=== PATIENT | male | born 1970 | race African-American/Black ===

== ENCOUNTER 2018-09-07 09:30 | Inpatient (IN) | payer OTHER ==
[2018-09-07 09:33] VITALS: BMI 22.3
--- NOTE | 2018-09-07 09:47 | HP ---
CIWA Score Nausea/Vomitin Muscle Tremors: 2 Anxiety: 2 Agitation: 2 Paroxysmal Sweats: 1-Minimal Palms Moist Orientation: 0-Oriented Tacttile Disturbances: 1-Very Mild Itch/Numbness Auditory Disturbances: 1-Very Mild Visual Disturbances: 1-Very Mild Sensitivity Headache: 2-Mild CIWA-Ar Total Score: 14 - Admission Criteria OASAS Guidelines: Admission for Medically Managed Detox: Requires at least one of the followin. CIWA greater than 12 2. Seizures within the past 24 hours 3. Delirium tremens within the past 24 hours 4. Hallucinations within the past 24 hours 5. Acute intervention needed for co occurring medical disorder 6. Acute intervention needed for co occurring psychiatric disorder 7. Severe withdrawal that cannot be handled at a lower level of care (continued vomiting, continued diarrhea, abnormal vital signs) requiring intravenous medication and/or fluids 8. Patient presents the following: CIWA greater than 12, Acute intervention needed for co-occurring med or psych disorder Admission Criteria Met: Admission criteria met Admission ROS S - HPI Chief Complaint: i need help to stop drinking alcohol,cocaine and marijuana Allergies/Adverse Reactions: Allergies Allergy/AdvReac Type Severity Reaction Status Date / Time shellfish derived Allergy Swelling Verified 09/07/18 09:51 NKDA Allergy Uncoded 09/07/18 09:52 History of Present Illness: this 48 years old male with alcohol,cocaine and marijuana dependence,seeking detox,withdrawal symptom,last detox 2002 history of chf,atrial fibrillation,type 2 dm,weight loss nicotine dependence longest period sobriety 3 years plan fo rrehab Exam Limitations: No Limitations - Ebola screening Have you traveled outside of the country in the last 21 days: No Have you had contact with anyone from an Ebola affected area: No Have you been sick,other than usual withdrawal symptoms: No Do you have a fever: No - Review of Systems Constitutional: Loss of Appetite, Malaise, Night Sweats, Changes in sleep, Weakness, Unintentional Wgt. Loss EENT: reports: Nose Congestion Respiratory: reports: No Symptoms reported Cardiac: reports: Other (chf,atrial fibrillation) GI: reports: Nausea, Poor Appetite, Abdominal cramping : reports: No Symptoms Reported Musculoskeletal: reports: Back Pain, Muscle Pain Integumentary: reports: Dryness Neuro: reports: No Symptoms reported, Tremors Endocrine: reports: No Symptoms Reported Hematology: reports: No Symptoms Reported Psychiatric: reports: No Sypmtoms Reported, Judgement Intact, Mood/Affect Appropiate, Orientated x3 Patient History - Patient Medical History Hx Anemia: No Hx Asthma: No Hx Chronic Obstructive Pulmonary Disease (COPD): No Hx Cancer: No Hx Cardiac Disorders: No (reports 1heart attack 2010, negative findings) Hx Congestive Heart Failure: No Hx Hypertension: No Hx Hypercholesterolemia: No Hx Pacemaker: No HX Cerebrovascular Accident: No Hx Seizures: No Hx Dementia: No Hx Diabetes: Yes (on metformin) Hx Gastrointestinal Disorders: No Hx Liver Disease: No Hx Genitourinary Disorders: No Hx Renal Disease (ESRD): No Hx Thyroid Disease: No Hx Human Immunodeficiency Virus (HIV): Yes (since 2006) Hx Hepatitis C: No Hx Depression: No Hx Suicide Attempt: No Hx Bipolar Disorder: No Hx Schizophrenia: No Other Medical History: no sucidal,no homicidal - Patient Surgical History Past Surgical History: No Hx Neurologic Surgery: No Hx Cataract Extraction: No Hx Cardiac Surgery: No Hx Lung Surgery: No Hx Breast Surgery: No Hx Breast Biopsy: No Hx Abdominal Surgery: No Hx Appendectomy: No Hx Cholecystectomy: No Hx Genitourinary Surgery: No Hx Section: No Hx Orthopedic Surgery: No Anesthesia Reaction: No - PPD History Previous Implant?: Yes Date: 06/23/12 PPD to be Administered?: Yes - Smoking Cessation Smoking history: Current every day smoker Have you smoked in the past 12 months: Yes Aproximately how many cigarettes per day: 5 Cigars Per Day: 0 Hx Chewing Tobacco Use: No Initiated information on smoking cessation: Yes 'Breaking Loose' booklet given: 09/07/18 - Substance & Tx. History Hx Alcohol Use: Yes Hx Substance Use: Yes Substance Use Type: Alcohol, Cocaine, Marijuana Hx Substance Use Treatment: Yes (15 years ago) - Substances Abused Crack Route: Smoking Frequency: Daily Amount used: $50 Age of first use: 16 Date of Last Use: 09/05/18 Alcohol-vodka/beer Route: Oral Frequency: Daily Amount used: 1 pt./4 (16 oz.) Age of first use: 13 Date of Last Use: 09/06/18 Family Disease History - Family Disease History Family History: Denies Admission Physical Exam BHS - Vital Signs Vital Signs: Vital Signs - 24 hr 09/07/18 09:31 Temperature 96.1 F L Pulse Rate 133 H Respiratory 16 Rate Blood Pressure 129/90 - Physical General Appearance: Yes: Moderate Distress, Tremorous, Irritable, Sweating, Anxious HEENTM: Yes: Normal ENT Inspection, ELSY, Pharynx Normal Respiratory: Yes: Lungs Clear, Normal Breath Sounds, No Respiratory Distress Neck: Yes: Within Normal Limits, Supple, Trachea in good position Breast: Yes: Within Normal Limits Cardiology: Yes: Tachycardia Abdominal: Yes: Within Normal Limits, Normal Bowel Sounds, Non Tender, Flat, Soft Genitourinary: Yes: Within Normal Limits Back: Yes: Muscle Spasm Musculoskeletal: Yes: full range of Motion, Back pain, Muscle Pain Extremities: Yes: Within Normal Limits, Normal Range of Motion, Tremors Neurological: Yes: Within Normal Limits, auto bumper straightener II-XII NML intact, Fully Oriented, Alert Integumentary: Yes: Dry Lymphatic: Yes: Within Normal Limits - Diagnostic (1) Alcohol dependence with uncomplicated withdrawal Current Visit: Yes Status: Acute (2) Dependent for continence Current Visit: Yes Status: Acute (3) Cocaine dependence Current Visit: Yes Status: Acute (4) HIV (human immunodeficiency virus infection) Current Visit: No Status: Acute Comment: Continue Complera as prescribed (5) History of CHF (congestive heart failure) Current Visit: Yes Status: Acute (6) History of MO (myocardial infarction) Current Visit: Yes Status: Acute (7) History of atrial fibrillation Current Visit: Yes Status: Acute (8) Nicotine dependence Current Visit: Yes Status: Acute (9) Weight loss Current Visit: Yes Status: Acute Cleared for Admission [facility] - Detox or Rehab [facility] Level of Care: Medically Managed Detox Regimen/Protocol: Librium [facility] Breath Alcohol Content Breath Alcohol Content: 5 Urine Drug Screen - Results Drug Screen Negative: No Urine Drug Screen Results: THC-Marijuana, JHONY-Cocaine
[2018-09-07] MEDS ORDERED: MAGNESIUM HYDROX 2400MG/30ML ORAL SUSPENSION 30 ML CUP PO PRN (10:22)
[2018-09-07] MEDS ORDERED: ACETAMINOPHEN 325 MG TABLET (FP) PO PRN (10:22)
[2018-09-07] MEDS ORDERED: hydrOXYzine PAMOATE 25 MG CAPSULE (FP) PO PRN (10:22)
[2018-09-07] MEDS ORDERED: LOPERAMIDE HCL 2 MG CAPSULE PO PRN (10:22)
[2018-09-07] MEDS ORDERED: guaiFENesin/D-METHORPHAN HB 10 ML UNIT-DOSE CUPS PO PRN (10:22)
[2018-09-07] MEDS ORDERED: IBUPROFEN 400 MG TABLET (FP) PO PRN (10:22)
[2018-09-07] MEDS ORDERED: chlordiazePOXIDE HCL 25 MG CAPSULE PO PRN (10:22)
[2018-09-07] MEDS ORDERED: P-EPHED 60MG/TRIPROLIDI 2.5MG TABLET PO PRN (10:22)
[2018-09-07] MEDS ORDERED: MENTHOL/PHENOL 1 EACH UD MM PRN (10:22)
[2018-09-07] MEDS ORDERED: MAG HYDROX/AL HYDROX/SIMETH 30 ML UNIT-DOSE CUP PO PRN (10:22)
[2018-09-07] MEDS ORDERED: MAGNESIUM CITRATE 300 ML BOTTLE PO PRN (10:22)
--- NOTE | 2018-09-07 13:15 | EKG ---
Test Reason : Blood Pressure : / mmHG Vent. Rate : 065 BPM Atrial Rate : 260 BPM P-R Int : 000 ms QRS Dur : 130 ms QT Int : 378 ms P-R-T Axes : 263 059 -40 degrees QTc Int : 393 ms ATRIAL FLUTTER WITH 4:1 A-V CONDUCTION NON-SPECIFIC INTRA-VENTRICULAR CONDUCTION BLOCK CANNOT RULE OUT ANTEROSEPTAL INFARCT , AGE UNDETERMINED T WAVE ABNORMALITY, CONSIDER INFERIOR ISCHEMIA ABNORMAL ECG NO PREVIOUS ECGS AVAILABLE Confirmed by CLEM ADAN MD ([id number]) on 09/07/2018 1:14:59 PM Referred By: Confirmed By:CLEM ADAN MD
[2018-09-07] MEDS: FUROSEMIDE 40 MG TABLET (FP) PO SCH (17:23)
[2018-09-07] MEDS: chlordiazePOXIDE HCL 25 MG CAPSULE PO SCH ×2 (17:24→22:15)
[2018-09-07 18:30] LABS: URINE APPEARANCE CLEAR; URINE BILIRUBIN NEGATIVE (<2.0 mg/dL); URINE COLOR LTYELLOW; URINE GLUCOSE (UA) 1+ (NEGATIVE); URINE KETONE NEGATIVE (NEGATIVE); URINE LEUK ESTERASE NEGATIVE (NEGATIVE); URINE NITRITE NEGATIVE (NEGATIVE); URINE PROTEIN NEGATIVE (NEGATIVE); URINE UROBILINOGEN NEGATIVE mg/dL (0.2-1.0)
[2018-09-07] MEDS ORDERED: MELATONIN 5 MG TABLETS PO PRN (22:00)
[2018-09-07] MEDS: THIAMINE HCL 100 MG TABLET (FP) PO SCH (22:15)
[2018-09-07] MEDS: CARVEDILOL 6.25 MG TABLET (FP) PO SCH (22:15)
[2018-09-07] MEDS: APIXABAN 5 MG TABLET PO SCH (22:15)
[2018-09-08] MEDS: chlordiazePOXIDE HCL 25 MG CAPSULE PO SCH ×4 (05:56→23:00)
[2018-09-08] MEDS: metFORMIN HCL 500 MG TABLET (FP) PO SCH (06:26)
[2018-09-08] MEDS ORDERED: EMTRICITAB/RILPIVIRINE/TENOFOV 1 EACH TABLET PO SCH ×3 (08:00→10:15)
[2018-09-08] MEDS ORDERED: DILTIAZEM HCL 120 MG PO SCH (10:00)
[2018-09-08] MEDS ORDERED: APIXABAN 5 MG TABLET PO SCH (10:00)
[2018-09-08 10:09] LABS: HEMATOCRIT 43.2 % (35.4-49); HEMOGLOBIN 14.3 GM/dL (11.7-16.9); MCH 31.4 pg (25.7-33.7); MCHC 33.1 g/dl (32.0-35.9); MEAN CELL VOLUME 94.9 fl (80-96); MEAN PLT VOLUME 10.6 fl (7.5-11.1); PLATELET COUNT 137 K/MM3 (134-434); RBC 4.56 M/mm3 (4.00-5.60); RDW 13.1 % (11.9-15.9); WHITE BLOOD COUNT 8.3 K/mm3 (4.0-10.0)
[2018-09-08] MEDS: LOSARTAN POTASSIUM 25 MG TABLET PO SCH (10:18)
[2018-09-08] MEDS: PRENATAL VITAMINS W/ FOLIC ACID TABLET (FP) PO SCH (10:18)
[2018-09-08] MEDS: CARVEDILOL 6.25 MG TABLET (FP) PO SCH ×2 (10:18→23:01)
[2018-09-08] MEDS: APIXABAN 5 MG TABLET PO SCH ×2 (10:18→23:01)
--- NOTE | 2018-09-08 10:39 | PN ---
[facility] Progress Note Note: pt was ordered complera however pt states he will not take his complera since it has been 3 months since he has not been taking his medication. Pt prefer to go back to his doctor before starting complera again. complera d/c.
[2018-09-08 11:01] LABS: ALBUMIN 3.4 g/dl (3.4-5.0); ALK PHOS 90 U/L (45-117); ANION GAP 10 MMOL/L (8-16); BILIRUBIN,TOTAL 0.4 mg/dL (0.2-1); BLOOD UREA NITROGEN 26 mg/dL (7-18); CALCIUM 9.1 mg/dL (8.5-10.1); CHLORIDE 104 mmol/L (98-107); CO2 26 mmol/L (21-32); CREATININE 1.2 mg/dL (0.55-1.3); GLUCOSE,RANDOM 110 mg/dL (74-106); POTASSIUM 4.2 mmol/L (3.5-5.1); SGOT/AST 18 U/L (15-37); SGPT/ALT 20 U/L (13-61); SODIUM 139 mmol/L (136-145); TOT PROT 8.4 g/dl (6.4-8.2)
--- NOTE | 2018-09-08 11:24 | PN ---
[facility] CIWA - CIWA Score Nausea/Vomitin-No Nausea/No Vomiting Muscle Tremors: 3 Anxiety: 3 Agitation: 3 Paroxysmal Sweats: 2 Orientation: 0-Oriented Tacttile Disturbances: 0-None Auditory Disturbances: 0-None Visual Disturbances: 0-None Headache: 0-None Present CIWA-Ar Total Score: 11 [facility] Progress Note (SOAP) Subjective: agitation sweats mild shakes body aches interrupted sleep Objective: 09/08/18 11:23 Vital Signs Temperature 98.6 F 09/08/18 09:30 Pulse Rate 121 H 09/08/18 09:30 Respiratory Rate 18 09/08/18 09:30 Blood Pressure 105/75 09/08/18 09:30 O2 Sat by Pulse Oximetry (%) Laboratory Tests 09/07/18 09/07/18 09/07/18 10:24 15:48 16:39 WBC RBC Hgb Hct MCV MCH MCHC RDW Plt Count MPV Sodium Potassium Chloride Carbon Dioxide Anion Gap BUN Creatinine Creat Clearance w eGFR POC Glucometer 180 137 Random Glucose Calcium Total Bilirubin AST ALT Alkaline Phosphatase Total Protein Albumin Urine Color Ltyellow Urine Appearance Clear Urine pH 5.0 Ur Specific [place] 1.017 Urine Protein Negative Urine Glucose (UA) 1+ H Urine Ketones Negative Urine Blood Negative Urine Nitrite Negative Urine Bilirubin Negative Urine Urobilinogen Negative Ur Leukocyte Esterase Negative RPR Titer 09/08/18 09/08/18 09/08/18 05:55 06:00 06:00 WBC 8.3 RBC 4.56 Hgb 14.3 Hct 43.2 MCV 94.9 MCH 31.4 MCHC 33.1 RDW 13.1 Plt Count 137 D MPV 10.6 Sodium 139 Potassium 4.2 Chloride 104 Carbon Dioxide 26 Anion Gap 10 BUN 26 H Creatinine 1.2 Creat Clearance w eGFR > 60 POC Glucometer 175 Random Glucose 110 H Calcium 9.1 Total Bilirubin 0.4 AST 18 ALT 20 Alkaline Phosphatase 90 Total Protein 8.4 H Albumin 3.4 Urine Color Urine Appearance Urine pH Ur Specific [place] Urine Protein Urine Glucose (UA) Urine Ketones Urine Blood Urine Nitrite Urine Bilirubin Urine Urobilinogen Ur Leukocyte Esterase RPR Titer 09/08/18 06:00 WBC RBC Hgb Hct MCV MCH MCHC RDW Plt Count MPV Sodium Potassium Chloride Carbon Dioxide Anion Gap BUN Creatinine Creat Clearance w eGFR POC Glucometer Random Glucose Calcium Total Bilirubin AST ALT Alkaline Phosphatase Total Protein Albumin Urine Color Urine Appearance Urine pH Ur Specific [place] Urine Protein Urine Glucose (UA) Urine Ketones Urine Blood Urine Nitrite Urine Bilirubin Urine Urobilinogen Ur Leukocyte Esterase RPR Titer Nonreactive aaox3 ambulating no acute distress Assessment: 09/08/18 11:24 withdrawal sx Plan: continue detox increase fluids
[2018-09-08] MEDS ORDERED: FLU VACCINE QUAD 60 MCG/0.5 ML (MDV 18-19) IM ONE (12:00)
[2018-09-08] MEDS: FUROSEMIDE 40 MG TABLET (FP) PO SCH (20:09)
[2018-09-08] MEDS: THIAMINE HCL 100 MG TABLET (FP) PO SCH (23:00)
[2018-09-09] MEDS: chlordiazePOXIDE HCL 25 MG CAPSULE PO SCH ×2 (06:31→10:35)
[2018-09-09] MEDS: metFORMIN HCL 500 MG TABLET (FP) PO SCH (06:31)
[2018-09-09] MEDS ORDERED: ERGOCALCIFEROL (VITAMIN D2) 50,000 UNIT CAPSULE (FP) PO SCH (10:00)
[2018-09-09] MEDS: CARVEDILOL 6.25 MG TABLET (FP) PO SCH ×2 (10:34→22:31)
[2018-09-09] MEDS: PRENATAL VITAMINS W/ FOLIC ACID TABLET (FP) PO SCH (10:35)
[2018-09-09] MEDS: APIXABAN 5 MG TABLET PO SCH ×2 (10:35→22:31)
[2018-09-09] MEDS: LOSARTAN POTASSIUM 25 MG TABLET PO SCH (10:36)
--- NOTE | 2018-09-09 12:23 | PN ---
S CIWA - CIWA Score Nausea/Vomitin-No Nausea/No Vomiting Muscle Tremors: None Anxiety: 2 Agitation: 1-Slight > Activity Paroxysmal Sweats: No Perspiration Orientation: 0-Oriented Tacttile Disturbances: 2-Mild Itch/Numbness/Burn Auditory Disturbances: 0-None Visual Disturbances: 0-None Headache: 0-None Present CIWA-Ar Total Score: 5 [facility] Progress Note (SOAP) Subjective: PATIENT C/O ITCHING, ANXIETY AND INTERRUPTED SLEEP. Objective: 09/09/18 12:22 Vital Signs Temperature 97.2 F L 09/09/18 09:50 Pulse Rate 71 09/09/18 09:50 Respiratory Rate 16 09/09/18 09:50 Blood Pressure 101/68 09/09/18 09:50 O2 Sat by Pulse Oximetry (%) Laboratory Tests 09/07/18 09/07/18 09/07/18 10:24 15:48 16:39 WBC RBC Hgb Hct MCV MCH MCHC RDW Plt Count MPV Sodium Potassium Chloride Carbon Dioxide Anion Gap BUN Creatinine Creat Clearance w eGFR POC Glucometer 180 137 Random Glucose Calcium Total Bilirubin AST ALT Alkaline Phosphatase Total Protein Albumin Urine Color Ltyellow Urine Appearance Clear Urine pH 5.0 Ur Specific [place] 1.017 Urine Protein Negative Urine Glucose (UA) 1+ H Urine Ketones Negative Urine Blood Negative Urine Nitrite Negative Urine Bilirubin Negative Urine Urobilinogen Negative Ur Leukocyte Esterase Negative RPR Titer 09/08/18 09/08/18 09/08/18 05:55 06:00 06:00 WBC 8.3 RBC 4.56 Hgb 14.3 Hct 43.2 MCV 94.9 MCH 31.4 MCHC 33.1 RDW 13.1 Plt Count 137 D MPV 10.6 Sodium 139 Potassium 4.2 Chloride 104 Carbon Dioxide 26 Anion Gap 10 BUN 26 H Creatinine 1.2 Creat Clearance w eGFR > 60 POC Glucometer 175 Random Glucose 110 H Calcium 9.1 Total Bilirubin 0.4 AST 18 ALT 20 Alkaline Phosphatase 90 Total Protein 8.4 H Albumin 3.4 Urine Color Urine Appearance Urine pH Ur Specific [place] Urine Protein Urine Glucose (UA) Urine Ketones Urine Blood Urine Nitrite Urine Bilirubin Urine Urobilinogen Ur Leukocyte Esterase RPR Titer 09/08/18 09/08/18 09/09/18 06:00 16:41 06:29 WBC RBC Hgb Hct MCV MCH MCHC RDW Plt Count MPV Sodium Potassium Chloride Carbon Dioxide Anion Gap BUN Creatinine Creat Clearance w eGFR POC Glucometer 167 148 Random Glucose Calcium Total Bilirubin AST ALT Alkaline Phosphatase Total Protein Albumin Urine Color Urine Appearance Urine pH Ur Specific [place] Urine Protein Urine Glucose (UA) Urine Ketones Urine Blood Urine Nitrite Urine Bilirubin Urine Urobilinogen Ur Leukocyte Esterase RPR Titer Nonreactive PE: ALERT AND ORIENTED X 3 SKIN WARM AND DRY CAR S1S2 RESP CTA BL EXT FULL ROM, NO TREMORS Assessment: 09/09/18 12:23 WITHDRAWAL SX Plan: CONTINUE DETOX ENCOURAGE ORAL FLUIDS CONTINUE TO MONITOR
[2018-09-09] MEDS: chlordiazePOXIDE 5 MG CAPSULE PO SCH ×2 (16:31→22:35)
[2018-09-09] MEDS: FUROSEMIDE 40 MG TABLET (FP) PO SCH (17:46)
[2018-09-09] MEDS: THIAMINE HCL 100 MG TABLET (FP) PO SCH (22:31)
[2018-09-10] MEDS: chlordiazePOXIDE 5 MG CAPSULE PO SCH ×2 (06:09→10:40)
[2018-09-10] MEDS: metFORMIN HCL 500 MG TABLET (FP) PO SCH (10:37)
[2018-09-10] MEDS: APIXABAN 5 MG TABLET PO SCH ×2 (10:38→22:37)
[2018-09-10] MEDS: CARVEDILOL 6.25 MG TABLET (FP) PO SCH ×2 (10:38→22:37)
[2018-09-10] MEDS: LOSARTAN POTASSIUM 25 MG TABLET PO SCH (10:38)
[2018-09-10] MEDS: PRENATAL VITAMINS W/ FOLIC ACID TABLET (FP) PO SCH (10:39)
--- NOTE | 2018-09-10 12:57 | PN ---
S Progress Note (SOAP) Subjective: feeling better no tremor less sweat no gi distress last monthly medication filled 09/01/18 x 30 days medication at home Objective: 09/10/18 12:56 Vital Signs Temperature 97.5 F L 09/10/18 09:37 Pulse Rate 64 09/10/18 09:37 Respiratory Rate 18 09/10/18 09:37 Blood Pressure 109/67 09/10/18 09:37 O2 Sat by Pulse Oximetry (%) Laboratory Last Values WBC 8.3 K/mm3 (4.0-10.0) 09/08/18 06:00 RBC 4.56 M/mm3 (4.00-5.60) 09/08/18 06:00 Hgb 14.3 GM/dL (11.7-16.9) 09/08/18 06:00 Hct 43.2 % (35.4-49) 09/08/18 06:00 MCV 94.9 fl (80-96) 09/08/18 06:00 MCH 31.4 pg (25.7-33.7) 09/08/18 06:00 MCHC 33.1 g/dl (32.0-35.9) 09/08/18 06:00 RDW 13.1 % (11.9-15.9) 09/08/18 06:00 Plt Count 137 K/MM3 (134-434) D 09/08/18 06:00 MPV 10.6 fl (7.5-11.1) 09/08/18 06:00 Sodium 139 mmol/L (136-145) 09/08/18 06:00 Potassium 4.2 mmol/L (3.5-5.1) 09/08/18 06:00 Chloride 104 mmol/L (98-107) 09/08/18 06:00 Carbon Dioxide 26 mmol/L (21-32) 09/08/18 06:00 Anion Gap 10 MMOL/L (8-16) 09/08/18 06:00 BUN 26 mg/dL (7-18) H 09/08/18 06:00 Creatinine 1.2 mg/dL (0.55-1.3) 09/08/18 06:00 Creat Clearance w eGFR > 60 (>60) 09/08/18 06:00 POC Glucometer 148 UNITS (80-120) 09/10/18 06:52 Random Glucose 110 mg/dL (74-106) H 09/08/18 06:00 Calcium 9.1 mg/dL (8.5-10.1) 09/08/18 06:00 Total Bilirubin 0.4 mg/dL (0.2-1) 09/08/18 06:00 AST 18 U/L (15-37) 09/08/18 06:00 ALT 20 U/L (13-61) 09/08/18 06:00 Alkaline Phosphatase 90 U/L (45-117) 09/08/18 06:00 Total Protein 8.4 g/dl (6.4-8.2) H 09/08/18 06:00 Albumin 3.4 g/dl (3.4-5.0) 09/08/18 06:00 Urine Color Ltyellow 09/07/18 15:48 Urine Appearance Clear 09/07/18 15:48 Urine pH 5.0 (5.0-8.0) 09/07/18 15:48 Ur Specific [place] 1.017 (1.010-1.035) 09/07/18 15:48 Urine Protein Negative (NEGATIVE) 09/07/18 15:48 Urine Glucose (UA) 1+ (NEGATIVE) H 09/07/18 15:48 Urine Ketones Negative (NEGATIVE) 09/07/18 15:48 Urine Blood Negative (NEGATIVE) 09/07/18 15:48 Urine Nitrite Negative (NEGATIVE) 09/07/18 15:48 Urine Bilirubin Negative (<2.0 mg/dL) 09/07/18 15:48 Urine Urobilinogen Negative mg/dL (0.2-1.0) 09/07/18 15:48 Ur Leukocyte Esterase Negative (NEGATIVE) 09/07/18 15:48 RPR Titer Nonreactive (NONREACTIVE) 09/08/18 06:00 lab noted Assessment: 09/10/18 12:56 mild withdrawal sx Plan: medically supervised detox
[2018-09-10] MEDS: chlordiazePOXIDE HCL 10 MG CAPSULE PO SCH ×2 (16:41→22:37)
[2018-09-10] MEDS: FUROSEMIDE 40 MG TABLET (FP) PO SCH (17:35)
[2018-09-10] MEDS: THIAMINE HCL 100 MG TABLET (FP) PO SCH (22:37)
--- NOTE | 2018-09-11 08:47 | DS ---
[facility] Detox Discharge Summary Admission Date: 09/07/18 Discharge Date: 09/11/18 - History Present History: Alcohol Dependence Additional Comments: 48 years old male admitted on 09/07/18 for alcohol withdrawal sx completed alcohol detox regimen tolerated well denies alcohol withdrawal sx alert oriented x 3 no acute distress aftercare revelation Pertinent Past History: patient did not take complera x 2-3 weeks patient wants to go to [facility] for new ART medication that complera "hurts my stomach" patient has abscess on right buttock swell erythema warm to touch tenderness + drainage of serosenqueno - Physical Exam Results Vital Signs: Vital Signs Temperature 98 F 09/11/18 07:27 Pulse Rate 122 H 09/11/18 07:27 Respiratory Rate 20 09/11/18 07:27 Blood Pressure 120/70 09/11/18 07:27 O2 Sat by Pulse Oximetry (%) Pertinent Admission Physical Exam Findings: alcohol withdrawal sx Vital Signs Temperature 98.1 F 09/11/18 13:21 Pulse Rate 132 H 09/11/18 13:21 Respiratory Rate 18 09/11/18 13:21 Blood Pressure 110/83 09/11/18 13:21 O2 Sat by Pulse Oximetry (%) Laboratory Last Values WBC 8.3 K/mm3 (4.0-10.0) 09/08/18 06:00 RBC 4.56 M/mm3 (4.00-5.60) 09/08/18 06:00 Hgb 14.3 GM/dL (11.7-16.9) 09/08/18 06:00 Hct 43.2 % (35.4-49) 09/08/18 06:00 MCV 94.9 fl (80-96) 09/08/18 06:00 MCH 31.4 pg (25.7-33.7) 09/08/18 06:00 MCHC 33.1 g/dl (32.0-35.9) 09/08/18 06:00 RDW 13.1 % (11.9-15.9) 09/08/18 06:00 Plt Count 137 K/MM3 (134-434) D 09/08/18 06:00 MPV 10.6 fl (7.5-11.1) 09/08/18 06:00 Sodium 139 mmol/L (136-145) 09/08/18 06:00 Potassium 4.2 mmol/L (3.5-5.1) 09/08/18 06:00 Chloride 104 mmol/L (98-107) 09/08/18 06:00 Carbon Dioxide 26 mmol/L (21-32) 09/08/18 06:00 Anion Gap 10 MMOL/L (8-16) 09/08/18 06:00 BUN 26 mg/dL (7-18) H 09/08/18 06:00 Creatinine 1.2 mg/dL (0.55-1.3) 09/08/18 06:00 Creat Clearance w eGFR > 60 (>60) 09/08/18 06:00 POC Glucometer 142 UNITS (80-120) 09/11/18 06:16 Random Glucose 110 mg/dL (74-106) H 09/08/18 06:00 Calcium 9.1 mg/dL (8.5-10.1) 09/08/18 06:00 Total Bilirubin 0.4 mg/dL (0.2-1) 09/08/18 06:00 AST 18 U/L (15-37) 09/08/18 06:00 ALT 20 U/L (13-61) 09/08/18 06:00 Alkaline Phosphatase 90 U/L (45-117) 09/08/18 06:00 Total Protein 8.4 g/dl (6.4-8.2) H 09/08/18 06:00 Albumin 3.4 g/dl (3.4-5.0) 09/08/18 06:00 Urine Color Ltyellow 09/07/18 15:48 Urine Appearance Clear 09/07/18 15:48 Urine pH 5.0 (5.0-8.0) 09/07/18 15:48 Ur Specific [place] 1.017 (1.010-1.035) 09/07/18 15:48 Urine Protein Negative (NEGATIVE) 09/07/18 15:48 Urine Glucose (UA) 1+ (NEGATIVE) H 09/07/18 15:48 Urine Ketones Negative (NEGATIVE) 09/07/18 15:48 Urine Blood Negative (NEGATIVE) 09/07/18 15:48 Urine Nitrite Negative (NEGATIVE) 09/07/18 15:48 Urine Bilirubin Negative (<2.0 mg/dL) 09/07/18 15:48 Urine Urobilinogen Negative mg/dL (0.2-1.0) 09/07/18 15:48 Ur Leukocyte Esterase Negative (NEGATIVE) 09/07/18 15:48 RPR Titer Nonreactive (NONREACTIVE) 09/08/18 06:00 lab noted - Treatment Hospital Course: Detox Protocol Followed, Detoxed Safely, Responded well, Discharged Condition Good, Rehab Referral Accepted Patient has Accepted a Rehab Referral to: [facility] - Medication Discharge Medications: Ambulatory Orders Emtricitab/Rilpivirine/Tenofov [Complera Tablet -] 1 each PO DAILY #30 tablet Apixaban [Eliquis -] 5 mg PO BID 09/07/18 Carvedilol [Coreg -] 6.25 mg PO BID 09/07/18 Diltiazem Cd [Cardizem Cd -] 120 mg PO DAILY 09/07/18 Ergocalciferol (Vitamin D2) [Vitamin D2] 50,000 unit PO WEEKLY 09/07/18 Furosemide [Lasix -] 40 mg PO DAILY 09/07/18 Losartan Potassium [Cozaar -] 25 mg PO DAILY 09/07/18 Metformin HCl [Glucophage] 500 mg PO DAILY 09/07/18 - Diagnosis (1) Alcohol dependence with uncomplicated withdrawal Current Visit: Yes Status: Acute (2) Nicotine dependence Current Visit: Yes Status: Acute Qualifiers: Nicotine product type: cigarettes Substance use status: in withdrawal Qualified Code(s): F17.213 - Nicotine dependence, cigarettes, with withdrawal (3) Weight loss Current Visit: Yes Status: Acute (4) Diabetes mellitus Current Visit: Yes Status: Chronic Qualifiers: Diabetes mellitus type: other specified (including ADAM) Diabetes mellitus termite control service representative insulin use: without mcfp use Diabetes mellitus complication status: without complication Qualified Code(s): E13.9 - Other specified diabetes mellitus without complications (5) HIV (human immunodeficiency virus infection) Current Visit: Yes Status: Chronic - AMA Did Patient Leave Against Medical Advice: No
[2018-09-11] MEDS: chlordiazePOXIDE HCL 10 MG CAPSULE PO SCH (10:19)
[2018-09-11] MEDS: LOSARTAN POTASSIUM 25 MG TABLET PO SCH (10:22)
[2018-09-11] MEDS: APIXABAN 5 MG TABLET PO SCH (10:22)
[2018-09-11] MEDS: metFORMIN HCL 500 MG TABLET (FP) PO SCH (10:22)
[2018-09-11] MEDS: PRENATAL VITAMINS W/ FOLIC ACID TABLET (FP) PO SCH (10:22)
[2018-09-11] MEDS: CARVEDILOL 6.25 MG TABLET (FP) PO SCH (10:22)
[2018-09-11] MEDS ORDERED: AMOXICILLIN 500 MG CAPSULE (FP) PO SCH (11:00)
[2018-09-11 13:21] VITALS: BP 110/83; PULSE 132; TEMP 98.1
== END 2018-09-11 12:40 | disposition other institution (70) | DRG 774 ==
LOC: YASAS 09:30 → Y6N 11:04
PROC: HZ2ZZZZ Detoxification Services for Substance Abuse Treatment (ICD-10-PCS; principal; 2018-09-07)
DX: F10.230 Alcohol dependence with withdrawal, uncomplicated (principal); F14.20 Cocaine dependence, uncomplicated; F17.213 Nicotine dependence, cigarettes, with withdrawal; Z21 Asymptomatic human immunodeficiency virus [HIV] infection status; E11.9 Type 2 diabetes mellitus without complications; Z79.84 Long term (current) use of oral hypoglycemic drugs; I25.2 Old myocardial infarction; I50.9 Heart failure, unspecified; I48.91 Unspecified atrial fibrillation; Z79.01 Long term (current) use of anticoagulants; R63.4 Abnormal weight loss; Z68.20 Body mass index [BMI] 20.0-20.9, adult; Z74.1 Need for assistance with personal care
CPT/HCPCS: 36415; 80053; 81003; 82962; 85027; 86593; 90688; 93005; 93010; G0008

== ENCOUNTER 2018-09-11 14:48 | Inpatient (IN) | payer OTHER ==
--- NOTE | 2018-09-11 14:31 | HP ---
[facility] Rehab Assess/Revision - Admission History Admitted to Rehab from: [facility] [place] Date of Admission to Rehab: 09/11/18 - Findings Detox History & Physical reviewed: Yes Concur with findings: Yes Comments/Additional Findings: transferred from detox to rehab admission as per protocol Inpatient Rehab Admission - Initial Determination Are CD services needed?: Yes Free of communicable disease: Yes Not in need of hospitalization: Yes - Rehab Admission Criteria Previous failed treatment: Yes Poor recovery environment: Yes Comorbidities: Yes Lacks judgement: No Patient is meeting Inpatient Rehab admission criteria:: Yes
[~2018-09-11 14:48] MED LIST: ACETAMINOPHEN 325 MG TABLET (FP) PO PRN; IBUPROFEN 400 MG TABLET (FP) PO PRN; LOPERAMIDE HCL 2 MG CAPSULE PO PRN; MAG HYDROX/AL HYDROX/SIMETH 30 ML UNIT-DOSE CUP PO PRN; MAGNESIUM CITRATE 300 ML BOTTLE PO PRN; MAGNESIUM HYDROX 2400MG/30ML ORAL SUSPENSION 30 ML CUP PO PRN; MENTHOL/PHENOL 1 EACH UD MM PRN; NICOTINE 14 MG/24 HOURS TOPICAL PATCH TD PRN; NICOTINE POLACRILEX 2 MG GUM BUC PRN; P-EPHED 60MG/TRIPROLIDI 2.5MG TABLET PO PRN; guaiFENesin/D-METHORPHAN HB 10 ML UNIT-DOSE CUPS PO PRN
[2018-09-11 19:52] VITALS: BP 128/83; PULSE 68; TEMP 99
[2018-09-11] MEDS ORDERED: THIAMINE HCL 100 MG TABLET (FP) PO SCH (22:00)
[2018-09-11] MEDS ORDERED: APIXABAN 5 MG TABLET PO SCH (22:00)
[2018-09-11] MEDS ORDERED: MELATONIN 5 MG TABLETS PO PRN (22:00)
[2018-09-11] MEDS ORDERED: CARVEDILOL 6.25 MG TABLET (FP) PO SCH (22:00)
[2018-09-12] MEDS ORDERED: metFORMIN HCL 500 MG TABLET (FP) PO SCH (07:00)
[2018-09-12] MEDS ORDERED: LOSARTAN POTASSIUM 25 MG TABLET PO SCH (10:00)
[2018-09-12] MEDS ORDERED: PRENATAL VITAMINS W/ FOLIC ACID TABLET (FP) PO SCH (10:00)
[2018-09-12] MEDS ORDERED: FUROSEMIDE 40 MG TABLET (FP) PO SCH (10:00)
[2018-09-16] MEDS ORDERED: ERGOCALCIFEROL (VITAMIN D2) 50,000 UNIT CAPSULE (FP) PO SCH (10:00)
== END 2018-09-11 21:50 | disposition left against medical advice (07) | DRG 770 ==
LOC: YASAS 14:48 → Y5N 14:49
PROVIDERS: ADMIT Psychiatry & Neurology Psychiatry; ATTEND Psychiatry & Neurology Psychiatry
PROC: HZ42ZZZ Group Counseling for Substance Abuse Treatment, Cognitive-Behavioral (ICD-10-PCS; principal; 2018-09-11)
DX: F10.230 Alcohol dependence with withdrawal, uncomplicated (principal); F14.20 Cocaine dependence, uncomplicated; F17.210 Nicotine dependence, cigarettes, uncomplicated; Z21 Asymptomatic human immunodeficiency virus [HIV] infection status; E11.9 Type 2 diabetes mellitus without complications; Z79.84 Long term (current) use of oral hypoglycemic drugs; I25.2 Old myocardial infarction; I50.9 Heart failure, unspecified; I48.91 Unspecified atrial fibrillation; Z79.01 Long term (current) use of anticoagulants; R63.4 Abnormal weight loss; Z68.20 Body mass index [BMI] 20.0-20.9, adult; Z74.1 Need for assistance with personal care

== ENCOUNTER → 2019-07-06 | Outpatient (CLI) | payer OTHER | LOC: YHH 11:01 ==

== ENCOUNTER 2020-07-08 12:46 | Inpatient (IN) | payer OTHER ==
--- NOTE | 2020-07-08 13:10 | PDOC ---
History of Present Illness - General Chief Complaint: Blood Sugar Problem Stated Complaint: BLOOD SUGAR PROBLEM Time Seen by Provider: 07/08/20 13:09 History Source: Patient Exam Limitations: No Limitations - History of Present Illness Initial Comments: 07/08/20 13:09 HPI: This is a 50 y/o male with a PMH of well controlled HIV, poorly controlled DM, and CHF presenting to the ED from [facility] due to hypotension/bradycardia, worsening sacral ulcers, and hyperglycemia. He presented to the [facility] today for a regular appointment when they discovered the abnormal vitals, however the patient was conversational and able to ambulate with no problem. He also reports that he had a witnessed syncopal episode last Tuesday. It lasted 2-3 minutes and was preceded by feeling hot, weak, and dizzy. He recovered over the next 10-15 minutes. He has had 5 syncopal episodes over the past 2 years which have always been in conjunction with worsening of his chronic sacral ulcers and an episode of sepsis. His last episode was one year ago and he was admitted to [facility]. He reports that he is chronically hypotensive and bradycardic. His blood pressure normally runs around 110/70's so his currently pressure is low for him. Since Tuesday, he has felt weak, dizzy, and had blurry vision. He denies chest pain, SOB, sore throat, abdominal pain, N/V, or diarrhea. ROS: GENERAL/CONSTITUTIONAL: Yes chills. Yes weakness HEAD, EYES, EARS, NOSE AND THROAT: Yes blurry vision No ear pain or discharge. No sore throat. CARDIOVASCULAR: No chest pain or shortness of breath. RESPIRATORY: Yes chronic cough, No wheezing, or hemoptysis. GASTROINTESTINAL: No nausea, vomiting, diarrhea or constipation. GENITOURINARY: No dysuria, frequency, or change in urination. MUSCULOSKELETAL: No joint or muscle swelling or pain. No neck or back pain. SKIN: Yes chronic back comedomes, worsening chronic sacral ulcers with purulence. NEUROLOGIC: No headache, vertigo, loss of consciousness, or change in strength/sensation. ENDOCRINE: No increased thirst. No abnormal weight change. HEMATOLOGIC/LYMPHATIC: No anemia, easy bleeding, or history of blood clots. PMH: HIV on Biktarvy, DM, CHF Social Hx: Admits to 5-6 cigarettes daily, occasional etoh, marijuana Meds: See nurse note. Allergies: NKDA PE: GENERAL: Awake, alert, and fully oriented, in no acute distress. Patient laying on his side due to pain from ulcers. HEAD: No signs of trauma EYES: PERRLA, EOMI ENT: Oropharynx clear without exudates. Moist mucosa NECK: Normal ROM, supple, no lymphadenopathy, JVD, or masses LUNGS: Breath sounds equal, clear to auscultation bilaterally. No wheezes, and no crackles HEART: irregular rhythm, bradycardic. normal S1 and S2, no murmurs, rubs or gallops ABDOMEN: Soft, nontender, normoactive bowel sounds. No guarding, no rebound. No masses EXTREMITIES: Normal range of motion, no edema. No clubbing or cyanosis. No cords, erythema, or tenderness NEUROLOGICAL: Cranial nerves II through XII grossly intact. Normal speech, normal gait SKIN: Multiple sacral decubitus ulcers. R. sided ulcer with small area of purulent drainage. The rest of the ulcers are crusted. MDM: 07/08/20 14:25 This is a 50 y/o male with a PMH of well controlled HIV, poorly controlled DM, and CHF presenting to the ED from [facility] due to hypotension/bradycardia, wor sening sacral ulcers, and hyperglycemia. - Concern for sepsis as patient is hypotensive, with infected sacral ulcer as source - Feels the same as previous sepsis episode - Well controlled HIV, poorly controlled DM - Afebrile in ED, hypotensive at 80/45 upon arrival. - Pulse fluctuated during exam between 40's-60's. - CBC, CMP, Troponin, Lactic acid, blood cultures - CXR, EKG, CT pelvis with contrast - Will empirically cover with Vancomycin - Spoke with Dr. Fagan who wanted Zosyn on board 07/08/20 14:51 Labs significant for: WBC 12.3k Na 130 Gluc 400's Creatinine 1.8. Up from baseline. PHONG. Not able to get Ct w/ contrast 07/08/20 16:43 - BP improving with fluids 117/82. - Patient admitted to [facility] Past History - Medical History Allergies/Adverse Reactions: Allergies Allergy/AdvReac Type Severity Reaction Status Date / Time No Known Drug Allergies Allergy Verified 07/08/20 13:50 shellfish derived Allergy Swelling Verified 07/08/20 13:50 NKDA Allergy Uncoded 03/14/20 14:34 Home Medications: Ambulatory Orders Carvedilol [Coreg -] 6.25 mg PO BID 09/07/18 Diltiazem Cd [Cardizem Cd -] 120 mg PO DAILY 09/07/18 Ergocalciferol (Vitamin D2) [Vitamin D2] 50,000 unit PO WEEKLY 09/07/18 Furosemide [Lasix -] 40 mg PO DAILY 09/07/18 Losartan Potassium [Cozaar -] 25 mg PO DAILY 09/07/18 Metformin HCl [Glucophage] 500 mg PO ACBK 09/07/18 Apixaban [Eliquis -] 1 tab PO DAILY 03/20/19 Bictegrav/Emtricit/Tenofov Ala [Biktarvy 50-200-25 mg Tablet] 1 each PO DAILY #30 tablet 06/02/20 Anemia: No Asthma: No Cancer: No Cardiac Disorders: Yes (CHF) CVA: No COPD: No CHF: Yes Dementia: No Diabetes: Yes GI Disorders: No Disorders: No HTN: Yes Hypercholesterolemia: No Kidney Stones: No Liver Disease: No Psychiatric Problems: Yes (Once on a 72 hour hold at [facility] at age 23) Seizures: No Thyroid Disease: No - Surgical History Abdominal Surgery: No Appendectomy: No Cardiac Surgery: No Cholecystectomy: No Lung Surgery: No Neurologic Surgery: No Orthopedic Surgery: No - Reproductive History Testicular Surgery: No - Psycho-Social/Smoking History Smoking History: Current every day smoker Have you smoked in the past 12 months: Yes Number of Cigarettes Smoked Daily: 5 Cigars Per Day: 0 'Breaking Loose' booklet given: 03/14/20 Heart Score/ECG Review - ECG Intrepretation Comment:: 07/08/20 15:36 EKG with Atrial flutter with variable AV block Septal infarct age undermined Abnormal EKG Vent rate 44bpm QRS 112ms QT/QTc 478/408 ED Treatment Course - LABORATORY CBC & Chemistry Diagram: 07/09/20 08:20 07/09/20 08:20 - ADDITIONAL ORDERS Additional order review: Laboratory Results 07/08/20 13:06 POC Glucometer 393 07/08/20 13:06 POC Glucometer 393 Discharge - Discharge Information Problems reviewed: Yes Clinical Impression/Diagnosis: Atrial flutter by electrocardiogram, Abscess of sacrum Condition: Fair - Follow up/Referral - Patient Discharge Instructions - Post Discharge Activity
[2020-07-08] MEDS ORDERED: SODIUM CHLORIDE 1,000 ML IV SCH ×3 (13:15→22:00)
[2020-07-08] MEDS ORDERED: VANCOMYCIN 1,000 MG in DEXTROSE 5%-WATER - 250 ML IVPB ONE (13:44)
--- NOTE | 2020-07-08 13:59 | PDOC ---
Attending Attestation - Resident Resident Name: Nguyen Daniels - ED Attending Attestation I have performed the following: I have examined & evaluated the patient, The case was reviewed & discussed with the resident, I agree w/resident's findings & plan - HPI HPI: 07/08/20 13:54 50-year-old male with history of well-controlled HIV, recurrence back abscesses requiring drainage and complicated by sepsis, last occurrence late 2018, referred now from [facility] [employer] [facility] for hyperglycemia and hypotension in the setting of syncopal episode 5 days ago and infected back abscess. Concern for sepsis as pt presented similarly late 2018 to [facility]. - Physicial Exam PE: 07/08/20 13:57 afebrile, BP 90 systolic alert, nad, conversant lying in stretcher speaking full sentences s1s2 irregular with normal rate, ctab multiple dermal cysts on back with induration, R sacral abscess with purulent drainage - Medical Decision Making 07/08/20 13:58 50-year-old male with history of HIV and recurrent cyst/abscess presents now with sacral abscess and hypotension, concern for sepsis. Sepsis protocol initiated IV antibiotics, will discuss with Dr. Thompson CT imaging to identify extent and number of abscesses. Has required OR drainage in the past. IV fluid resuscitation Admission 07/08/20 16:08 PHONG, elevated lactate, hyperglycemia without elevated AG. received abx, seen by ID. ? pna on cxr proceed with admission Heart Score/ECG Review #1 ECG reviewed & interpreted by me at: 13:13 General ECG Interpretation: Normal Rate (aflutter with variable conduction at rate 44), Normal Intervals (qtc 408), No acute ischemic changes Discharge - Discharge Information Problems reviewed: Yes Clinical Impression/Diagnosis: Atrial flutter by electrocardiogram, Abscess of sacrum Condition: Fair - Follow up/Referral - Patient Discharge Instructions - Post Discharge Activity
[2020-07-08 14:16] LABS: INR 1.43 (0.83-1.09); PROTHROMBIN TIME (PATIENT) 16.9 SEC (9.7-13.0)
[2020-07-08 14:19] LABS: ACTIVATED PTT 31.8 SECONDS (25.2-36.5)
[2020-07-08] MEDS ORDERED: PIPERACILLIN/TAZOB 4.5 GM 4.5 GM in DEXTROSE 5%-WATER 100 ML IVPB ONE (14:24)
[2020-07-08] MEDS ORDERED: PIPERACILLIN/TAZOB 4.5 GM 4.5 GM/100 ML BAG IVPB ONE (14:42)
[2020-07-08] MEDS ORDERED: VANCOMYCIN 1 GRAM (PRE-DOCKED) 1,000 MG/250 ML BAG IVPB ONE (14:43)
[2020-07-08 15:23] LABS: BASO % 0.5 % (0-2.0); EOS % 1.2 % (0-4.5); HEMATOCRIT 37.7 % (35.4-49); HEMOGLOBIN 12.6 GM/dL (11.7-16.9); LYMPH % 13.8 % (8-40); MCHC 33.3 g/dl (32.0-35.9); MEAN PLT VOLUME 9.5 fl (7.5-11.1); MONO % 7.1 % (3.8-10.2); NEUT % 77.4 % (42.8-82.8); PLATELET COUNT 240 K/MM3 (134-434); RBC 3.93 M/mm3 (4.00-5.60); RDW 13.6 % (11.9-15.9); WHITE BLOOD COUNT 12.3 K/mm3 (4.0-10.0)
[2020-07-08 15:24] LABS: VENOUS BASE EXCESS -0.8 mmol/L (-2-2); VENOUS O2 SATURATION 58.1 % (70-80); VENOUS PCO2 48.2 mmHg (38-52); VENOUS PH 7.341 (7.310-7.410)
[2020-07-08 15:48] LABS: ALBUMIN 2.8 g/dl (3.4-5.0); BILIRUBIN,TOTAL 0.5 mg/dL (0.2-1); BLOOD UREA NITROGEN 16.2 mg/dL (7-18); CALCIUM 8.3 mg/dL (8.5-10.1); CREATININE 1.8 mg/dL (0.55-1.3); POTASSIUM 4.7 mmol/L (3.5-5.1); TOT PROT 7.8 g/dl (6.4-8.2)
[2020-07-08 17:00] LABS: PH,URINE 5.5 (5.0-8.0); URINE APPEARANCE CLEAR; URINE BILIRUBIN NEGATIVE (NEGATIVE); URINE COLOR YELLOW; URINE GLUCOSE (UA) 3+ (NEGATIVE); URINE KETONE NEGATIVE (NEGATIVE); URINE LEUK ESTERASE NEGATIVE (NEGATIVE); URINE NITRITE NEGATIVE (NEGATIVE); URINE PROTEIN NEGATIVE (NEGATIVE)
--- NOTE | 2020-07-08 18:38 | PN ---
Progress Note (short form) - Note Progress Note: asked to evaluate by ER resident sent from the [facility] earlier this am with abscesses on his back/hypotension recent syncope with chills on Tuesday imp/reccd sepsis skin abscesses/sacral abscess doubt pneumonia well controlled HIV- continue biktarvy diabetes f/u labs imaging after labs are back iv hydration vanocmycin and zosyn based on renal function Problem List - Problems (1) Sepsis Code(s): A41.9 - SEPSIS, UNSPECIFIED ORGANISM (2) Skin abscess Code(s): L02.91 - CUTANEOUS ABSCESS, UNSPECIFIED (3) Abscess of sacrum Code(s): M46.28 - OSTEOMYELITIS OF VERTEBRA, SACRAL AND SACROCOCCYGEAL REGION (4) HIV (human immunodeficiency virus infection) Code(s): Z21 - ASYMPTOMATIC HUMAN IMMUNODEFICIENCY VIRUS INFECTION STATUS (5) Diabetes mellitus Code(s): E11.9 - TYPE 2 DIABETES MELLITUS WITHOUT COMPLICATIONS Qualifiers: Diabetes mellitus type: other specified (including ADAM) Diabetes mellitus long winder tender insulin use: without penitentiary use Diabetes mellitus complication status: without complication Qualified Code(s): E13.9 - Other specified diabetes mellitus without complications
--- NOTE | 2020-07-08 19:37 | CONS ---
DATE OF CONSULTATION: DATE OF DICTATION: 07/08/2020 INFECTIOUS DISEASE CONSULTATION HISTORY OF PRESENT ILLNESS: I was asked by the ER staff to see the patient. This is a 50-year-old man with a history of well-controlled HIV. He has had multiple episodes of abscesses of his back requiring drainage, last one year ago at [facility], over the last 20 years. He presented to the [facility] today with complaints of syncope on Tuesday reports he had chills, and he thinks he passed out at home. He was found in the clinic to have a blood pressure of 69/44 with a heart rate of 44, a glucose of 464, and was transported to the ER by EMS. He is awake and alert at present, receiving IV fluids. He notes that he has had problems with abscesses for 20 years. He notes that he never has been told he has MRSA. He has a past history of coronary artery disease, he had an UT in 2010. He has a history of CHF and atrial fibrillation, diabetes for more than 20 years, HIV since 2006, and he has multiple abscesses that he has had for a very long time. He notes that he has had a chronic skin condition as well that has let to multiple scars on his back. FAMILY HISTORY: Notable for diabetes in his mother, who has a history of throat cancer as well. Heart disease in his mother. SOCIAL HISTORY: He smokes several cigarettes a day, occasional social alcohol use. He denies any recent substance use. He has a history of pilonidal cyst in the back. REVIEW OF SYSTEMS: He denies headache. He denies fevers and chills. After he thinks he passed out on Tuesday, [facility] and felt fine. He denies any nausea, vomiting. He denies chest pain or abdominal pain. PHYSICAL EXAMINATION: General: He is a thin man in no acute distress. Vital Signs: His blood pressure on arrival at the clinic was 69/44, it was 81/57 in the ER. He weighs 61 kg, saturating 96% on room air with a heart rate that showing 66 and then 92. HEENT: Normocephalic. Eyes are anicteric. Neck: Supple. He has no thrush. Lungs: Clear to auscultation. Heart: Regular rate and rhythm. Abdomen: Soft, nontender. Extremities: Without edema. Skin: Notable for he has multiple lesions on his back that he reports are scarring from his prior rash. He has several scabbed areas at the top of his back that are draining pus. He has a large area in his sacrum where he has some purulent drainage. He reports cultures were taken, labs are all pending. Would treat him at this time with vancomycin and Zosyn. Would adjust the dosage after his labs and renal function are back. Plans are for pelvic imaging to evaluate the extent of these abscesses after his renal function and labs are back. Regarding his HIV status, his last viral load was undetectable, and his last T cells were 614. Further recommendations to follow. Please check hemoblogin A1c and refer to surgery. CARLOS GERMAN M.D. [id number] [email or web address]
--- NOTE | 2020-07-08 22:13 | HP ---
CHIEF COMPLAINT: back abscess PCP: XOCHITL Booker ([place]) HISTORY OF PRESENT ILLNESS: 50 M h/o HIV on HAART (diagnosed 2006, last viral load 5000), PSA w/ crack/cocaine/Etoh/tobacco/Marijuana, HTN, HLD, Afib on Eliquis, h/o multiple abscesses in the past in groin/axilla/sacrum but more recently sacrum, presents with acute on chronic sacral pain, warmth/erythema/and discharge of pus. Patient endorses fever/chills/weakness, weight loss and near syncopal episode at home. BP in 60s systolic in ED. ER course was notable for: (1) BP 60/40 responded w/ IVF (2) Vanco/Zosyn given for sacral abscess Recent Travel: denies PAST MEDICAL HISTORY: as above PAST SURGICAL HISTORY: multiple I/D's Social History: endorses Smoking: yes Alcohol:yes Drugs: crack/THC/cocaine Allergies No Known Drug Allergies Allergy (Verified 07/08/20 13:50) shellfish derived Allergy (Verified 07/08/20 13:50) Swelling NKDA Allergy (Uncoded 03/14/20 14:34) HOME MEDICATIONS: Home Medications Medication Instructions Recorded Carvedilol [Coreg -] 6.25 mg PO BID 09/07/18 Diltiazem Cd [Cardizem Cd -] 120 mg PO DAILY 09/07/18 Ergocalciferol (Vitamin D2) 50,000 unit PO WEEKLY 09/07/18 [Vitamin D2] Furosemide [Lasix -] 40 mg PO DAILY 09/07/18 Losartan Potassium [Cozaar -] 25 mg PO DAILY 09/07/18 Metformin HCl [Glucophage] 500 mg PO ACBK 09/07/18 Apixaban [Eliquis -] 1 tab PO DAILY 03/20/19 Bictegrav/Emtricit/Tenofov Ala 1 each PO DAILY #30 tablet 06/02/20 [Biktarvy 50-200-25 mg Tablet] PHYSICAL EXAMINATION GA lying on side, AAox3, cachectic HEENT NC/AT, temporal wasting, neck supple, no oral thrush LUNGS: Breath sounds equal, clear to auscultation bilaterally. No wheezes, and no crackles HEART: irregular rhythm, bradycardic. normal S1 and S2, no murmurs, rubs or gallops ABDOMEN: Soft, nontender, normoactive bowel sounds. No guarding, no rebound. No masses EXTREMITIES: Normal range of motion, no edema. No clubbing or cyanosis. No cords, erythema, or tenderness NEUROLOGICAL: Cranial nerves II through XII grossly intact. Normal speech, normal gait SKIN: Multiple dermal cysts spanning back. sacral ulcer with small area of purulent drainage. Vital Signs - 24 hr 07/08/20 07/08/20 07/08/20 12:50 15:00 15:35 Temperature 98.3 F Pulse Rate 56 L Pulse Rate [ 92 H 69 Apical] Respiratory 16 13 18 Rate Blood Pressure 80/45 L Blood Pressure 81/57 L 117/82 [Right Arm] O2 Sat by Pulse 100 96 100 Oximetry (%) 07/08/20 19:29 Temperature Pulse Rate Pulse Rate [ 65 Apical] Respiratory 20 Rate Blood Pressure Blood Pressure 115/86 [Right Arm] O2 Sat by Pulse 100 Oximetry (%) Laboratory Results - last 24 hr 07/08/20 07/08/20 07/08/20 13:06 13:40 13:40 WBC 12.3 H RBC 3.93 L Hgb 12.6 Hct 37.7 MCV 96.0 MCH 32.0 MCHC 33.3 RDW 13.6 Plt Count 240 MPV 9.5 Absolute Neuts (auto) 9.5 H Neutrophils % 77.4 Lymphocytes % 13.8 Monocytes % 7.1 Eosinophils % 1.2 Basophils % 0.5 Nucleated RBC % 0 PT with INR INR PTT (Actin FS) VBG pH POC VBG pCO2 POC VBG pO2 VBG HCO3 VBG O2 Sat (Viviane) VBG Base Excess Sodium 130 L Potassium 4.7 Chloride 97 L Carbon Dioxide 28 Anion Gap 5 L BUN 16.2 Creatinine 1.8 H Est GFR (CKD-EPI)AfAm 49.06 Est GFR (CKD-EPI)NonAf 42.33 POC Glucometer 393 Random Glucose 421 H* Lactic Acid Calcium 8.3 L Total Bilirubin 0.5 AST 30 ALT 18 Alkaline Phosphatase 132 H Troponin I Total Protein 7.8 Albumin 2.8 L TSH 1.62 D Free T4 1.32 H Urine Color Urine Appearance Urine pH Ur Specific [place] Urine Protein Urine Glucose (UA) Urine Ketones Urine Blood Urine Nitrite Urine Bilirubin Urine Urobilinogen Ur Leukocyte Esterase 07/08/20 07/08/20 07/08/20 13:40 13:45 13:45 WBC RBC Hgb Hct MCV MCH MCHC RDW Plt Count MPV Absolute Neuts (auto) Neutrophils % Lymphocytes % Monocytes % Eosinophils % Basophils % Nucleated RBC % PT with INR 16.90 H INR 1.43 H PTT (Actin FS) 31.8 VBG pH POC VBG pCO2 POC VBG pO2 VBG HCO3 VBG O2 Sat (Viviane) VBG Base Excess Sodium Potassium Chloride Carbon Dioxide Anion Gap BUN Creatinine Est GFR (CKD-EPI)AfAm Est GFR (CKD-EPI)NonAf POC Glucometer Random Glucose Lactic Acid 2.8 H* Calcium Total Bilirubin AST ALT Alkaline Phosphatase Troponin I < 0.02 Total Protein Albumin TSH Free T4 Urine Color Urine Appearance Urine pH Ur Specific [place] Urine Protein Urine Glucose (UA) Urine Ketones Urine Blood Urine Nitrite Urine Bilirubin Urine Urobilinogen Ur Leukocyte Esterase 07/08/20 07/08/20 13:45 15:35 WBC RBC Hgb Hct MCV MCH MCHC RDW Plt Count MPV Absolute Neuts (auto) Neutrophils % Lymphocytes % Monocytes % Eosinophils % Basophils % Nucleated RBC % PT with INR INR PTT (Actin FS) VBG pH 7.341 POC VBG pCO2 48.2 POC VBG pO2 32.4 VBG HCO3 25.5 VBG O2 Sat (Viviane) 58.1 L VBG Base Excess -0.8 Sodium Potassium Chloride Carbon Dioxide Anion Gap BUN Creatinine Est GFR (CKD-EPI)AfAm Est GFR (CKD-EPI)NonAf POC Glucometer Random Glucose Lactic Acid Calcium Total Bilirubin AST ALT Alkaline Phosphatase Troponin I Total Protein Albumin TSH Free T4 Urine Color Yellow Urine Appearance Clear Urine pH 5.5 D Ur Specific [place] 1.030 Urine Protein Negative Urine Glucose (UA) 3+ H Urine Ketones Negative Urine Blood Negative Urine Nitrite Negative Urine Bilirubin Negative Urine Urobilinogen 1.0 Ur Leukocyte Esterase Negative ASSESSMENT/PLAN: 50 M Infected sacral abscess Sepsis HIV on HAART Afib on AC HTN PSA Plan: Aggressive IVF, hold BP meds/BB Cont. Zosyn/Vancomycin, will need CT pelvis to assess underlying abscess Repeat lactic acid Restart Biktarvy ID evaluation Surgery consult for sacral debridement Don't advise to restart Coreg in view of patient using crack-cocaine DVT ppx: Eliquis Family Medical History Family History: As Documented Visit type - Emergency Visit Emergency Visit: Yes ED Registration Date: 07/08/20 Care time: The patient presented to the Emergency Department on the above date and was hospitalized for further evaluation of their emergent condition. - New Patient This patient is new to me today: Yes Date on this admission: 07/08/20 - Critical Care Critical Care patient: No
[2020-07-08] MEDS ORDERED: APIXABAN 5 MG TABLET ONE (23:04)
[2020-07-08] MEDS ORDERED: INSULIN (LEVEMIR) 100 UNITS/ML UNITS SQ ONE (23:05)
[2020-07-08] MEDS: INSULIN SLIDING SCALE (NOVOLOG) 1 VIAL SQ SCH (23:17)
[2020-07-08] MEDS: INSULIN (LEVEMIR) 100 UNITS/ML UNITS SQ SCH (23:17)
[2020-07-08] MEDS: APIXABAN 5 MG TABLET PO SCH (23:17)
[2020-07-09 04:09] LABS: CALCIUM 8.4 mg/dL (8.5-10.1); CREATININE 1.4 mg/dL (0.55-1.3); POTASSIUM 4.3 mmol/L (3.5-5.1)
[2020-07-09 08:51] LABS: BASO % 0.4 % (0-2.0); EOS % 0.9 % (0-4.5); HEMATOCRIT 35.7 % (35.4-49); HEMOGLOBIN 11.9 GM/dL (11.7-16.9); LYMPH % 9.6 % (8-40); MCH 31.4 pg (25.7-33.7); MCHC 33.3 g/dl (32.0-35.9); MEAN CELL VOLUME 94.3 fl (80-96); MEAN PLT VOLUME 8.8 fl (7.5-11.1); MONO % 6.2 % (3.8-10.2); NEUT % 82.9 % (42.8-82.8); PLATELET COUNT 219 K/MM3 (134-434); RBC 3.79 M/mm3 (4.00-5.60); RDW 13.6 % (11.9-15.9); WHITE BLOOD COUNT 11.3 K/mm3 (4.0-10.0)
[2020-07-09 09:21] LABS: ALBUMIN 2.6 g/dl (3.4-5.0); BILIRUBIN,TOTAL 0.3 mg/dL (0.2-1); CALCIUM 8.2 mg/dL (8.5-10.1); CREATININE 1.2 mg/dL (0.55-1.3); POTASSIUM 3.8 mmol/L (3.5-5.1); TOT PROT 7.3 g/dl (6.4-8.2)
[2020-07-09] MEDS: INSULIN (LEVEMIR) 100 UNITS/ML UNITS SQ SCH ×2 (10:00→22:27)
[2020-07-09] MEDS: INSULIN SLIDING SCALE (NOVOLOG) 1 VIAL SQ SCH ×4 (10:01→22:26)
[2020-07-09] MEDS ORDERED: APIXABAN 5 MG TABLET ONE (10:21)
--- NOTE | 2020-07-09 11:57 | PN ---
Teaching Attending Note Name of Resident: Devan Ndiaye ATTENDING PHYSICIAN STATEMENT I saw and evaluated the patient. I reviewed the resident's note and discussed the case with the resident. I agree with the resident's findings and plan as documented. SUBJECTIVE: Seen and examined at bedside, alert and oriented x3, denies dizziness, shortness of breath, chest pain. States he is feeling better since getting fluids and antibiotics on admission. Vital signs are stable and patient is afebrile OBJECTIVE Last Vital Signs Temp Pulse Resp BP Pulse Ox 98.8 F 75 16 118/76 98 07/09/20 06:30 07/09/20 06:30 07/09/20 06:30 07/09/20 06:30 07/09/20 07:32 PE: Per resident note Labs/Imaging: reviewed ASSESSMENT/PLAN 50-year-old male history of HIV on HAART, polysubstance abuse (crack/cocaine/EtOH/tobacco/marijuana), hypertension, HLD, A. fib on Eliquis, history of multiple recurrent abscesses presents with sepsis in the setting of multiple sacral abscesses #Severe sepsis in the setting of multiple sacral abscesses Improving status post fluids and antibiotics. Lactic acid resolved and PHONG improving Continue Vanco and Zosyn ID on board: Appreciate recommendations CT shows small right perianal fluid collection suspicious for an abscess, as well as large area of soft tissue density within the subcutaneous tissues of buttock suspicious for phlegmon/developing abscess Surgery consulted: Pending recommendations #PHONG on CKD stage II: Resolved Continue fluids Trend creatinine daily #Diabetes mellitus with hyperglycemia A1c 10.9 Continue Levemir 10 units twice daily Continue sliding scale Hold metformin, patient will likely need to be discharged on insulin #Atrial fibrillation Holding carvedilol and diltiazem giving recent hypotension. Will likely restart tomorrow Hold Eliquis given likely incision and drainage #Hypertension Holding home meds in setting of sepsis, likely restart tomorrow #HIV Continue HAART per ID
--- NOTE | 2020-07-09 12:36 | PN ---
Physical Exam: SUBJECTIVE: Patient seen and examined at bedside. Does not endorse acute overnight complaints. OBJECTIVE: Vital Signs Period Temp Pulse Resp BP Sys/Rios Pulse Ox Last 24 Hr 98.3 F-98.8 F 56-93 13-20 80-138/45-107 96-100 GENERAL: The patient is awake, alert, and fully oriented, in no acute distress. HEAD: Normocephalic, atraumatic. EYES: PERRL, extraocular movements intact, sclera anicteric, conjunctiva clear. ENT: Oropharynx clear, without erythema or exudates. Moist mucous membranes. NECK: Trachea midline, full range of motion. Supple without lymphadenopathy. LUNGS: Breath sounds equal, clear to auscultation bilaterally. No wheezes, no crackles. No accessory muscle use. HEART: Regular rate and rhythm. S1, S2 without murmur, rub or gallop. ABDOMEN: Soft, nondistended, nontender to light and deep palpation x4 quadrants. No rebound tenderness, no guarding. Normoactive bowel sounds x4 quadrants. No hepatosplenomegaly, no masses appreciated. EXTREMITIES: 2+ radial, dorsalis pedis pulses bilaterally. Warm, well-perfused. No lower extremity edema bilaterally. NEUROLOGICAL: Cranial nerves II through XII grossly intact. Normal speech. No gross focal deficits. PSYCH: Normal mood, normal affect upon my encounter. SKIN: Numerous circular lesions, some with purulent draiange along backside. Area of induration approx 10cm x 6cm. Laboratory Results - last 24 hr 07/08/20 07/08/20 07/08/20 13:06 13:40 13:40 WBC 12.3 H RBC 3.93 L Hgb 12.6 Hct 37.7 MCV 96.0 MCH 32.0 MCHC 33.3 RDW 13.6 Plt Count 240 MPV 9.5 Absolute Neuts (auto) 9.5 H Neutrophils % 77.4 Lymphocytes % 13.8 Monocytes % 7.1 Eosinophils % 1.2 Basophils % 0.5 Nucleated RBC % 0 PT with INR INR PTT (Actin FS) VBG pH POC VBG pCO2 POC VBG pO2 VBG HCO3 VBG O2 Sat (Viviane) VBG Base Excess Sodium 130 L Potassium 4.7 Chloride 97 L Carbon Dioxide 28 Anion Gap 5 L BUN 16.2 Creatinine 1.8 H Est GFR (CKD-EPI)AfAm 49.06 Est GFR (CKD-EPI)NonAf 42.33 POC Glucometer 393 Random Glucose 421 H* Hemoglobin A1c % Lactic Acid Calcium 8.3 L Total Bilirubin 0.5 AST 30 ALT 18 Alkaline Phosphatase 132 H Troponin I Total Protein 7.8 Albumin 2.8 L Triglycerides Cholesterol Total LDL Cholesterol HDL Cholesterol TSH 1.62 D Free T4 1.32 H Urine Color Urine Appearance Urine pH Ur Specific [place] Urine Protein Urine Glucose (UA) Urine Ketones Urine Blood Urine Nitrite Urine Bilirubin Urine Urobilinogen Ur Leukocyte Esterase COVID-19 (NONA) 07/08/20 07/08/20 07/08/20 13:40 13:45 13:45 WBC RBC Hgb Hct MCV MCH MCHC RDW Plt Count MPV Absolute Neuts (auto) Neutrophils % Lymphocytes % Monocytes % Eosinophils % Basophils % Nucleated RBC % PT with INR 16.90 H INR 1.43 H PTT (Actin FS) 31.8 VBG pH POC VBG pCO2 POC VBG pO2 VBG HCO3 VBG O2 Sat (Viviane) VBG Base Excess Sodium Potassium Chloride Carbon Dioxide Anion Gap BUN Creatinine Est GFR (CKD-EPI)AfAm Est GFR (CKD-EPI)NonAf POC Glucometer Random Glucose Hemoglobin A1c % Lactic Acid 2.8 H* Calcium Total Bilirubin AST ALT Alkaline Phosphatase Troponin I < 0.02 Total Protein Albumin Triglycerides Cholesterol Total LDL Cholesterol HDL Cholesterol TSH Free T4 Urine Color Urine Appearance Urine pH Ur Specific [place] Urine Protein Urine Glucose (UA) Urine Ketones Urine Blood Urine Nitrite Urine Bilirubin Urine Urobilinogen Ur Leukocyte Esterase COVID-19 (NONA) 07/08/20 07/08/20 07/08/20 13:45 15:00 15:35 WBC RBC Hgb Hct MCV MCH MCHC RDW Plt Count MPV Absolute Neuts (auto) Neutrophils % Lymphocytes % Monocytes % Eosinophils % Basophils % Nucleated RBC % PT with INR INR PTT (Actin FS) VBG pH 7.341 POC VBG pCO2 48.2 POC VBG pO2 32.4 VBG HCO3 25.5 VBG O2 Sat (Viviane) 58.1 L VBG Base Excess -0.8 Sodium Potassium Chloride Carbon Dioxide Anion Gap BUN Creatinine Est GFR (CKD-EPI)AfAm Est GFR (CKD-EPI)NonAf POC Glucometer Random Glucose Hemoglobin A1c % Lactic Acid Calcium Total Bilirubin AST ALT Alkaline Phosphatase Troponin I Total Protein Albumin Triglycerides Cholesterol Total LDL Cholesterol HDL Cholesterol TSH Free T4 Urine Color Yellow Urine Appearance Clear Urine pH 5.5 D Ur Specific [place] 1.030 Urine Protein Negative Urine Glucose (UA) 3+ H Urine Ketones Negative Urine Blood Negative Urine Nitrite Negative Urine Bilirubin Negative Urine Urobilinogen 1.0 Ur Leukocyte Esterase Negative COVID-19 (NONA) Not detected 07/08/20 07/08/20 07/09/20 23:12 23:26 03:17 WBC RBC Hgb Hct MCV MCH MCHC RDW Plt Count MPV Absolute Neuts (auto) Neutrophils % Lymphocytes % Monocytes % Eosinophils % Basophils % Nucleated RBC % PT with INR INR PTT (Actin FS) VBG pH POC VBG pCO2 POC VBG pO2 VBG HCO3 VBG O2 Sat (Viviane) VBG Base Excess Sodium Potassium Chloride Carbon Dioxide Anion Gap BUN Creatinine Est GFR (CKD-EPI)AfAm Est GFR (CKD-EPI)NonAf POC Glucometer 350 Random Glucose Hemoglobin A1c % Lactic Acid 3.3 H* 1.7 Calcium Total Bilirubin AST ALT Alkaline Phosphatase Troponin I Total Protein Albumin Triglycerides Cholesterol Total LDL Cholesterol HDL Cholesterol TSH Free T4 Urine Color Urine Appearance Urine pH Ur Specific [place] Urine Protein Urine Glucose (UA) Urine Ketones Urine Blood Urine Nitrite Urine Bilirubin Urine Urobilinogen Ur Leukocyte Esterase COVID-19 (NONA) 07/09/20 07/09/20 07/09/20 03:17 07:36 08:20 WBC 11.3 H RBC 3.79 L Hgb 11.9 Hct 35.7 MCV 94.3 MCH 31.4 MCHC 33.3 RDW 13.6 Plt Count 219 MPV 8.8 Absolute Neuts (auto) 9.4 H Neutrophils % 82.9 H Lymphocytes % 9.6 D Monocytes % 6.2 Eosinophils % 0.9 Basophils % 0.4 Nucleated RBC % 0 PT with INR INR PTT (Actin FS) VBG pH POC VBG pCO2 POC VBG pO2 VBG HCO3 VBG O2 Sat (Viviane) VBG Base Excess Sodium 141 Potassium 4.3 Chloride 109 H Carbon Dioxide 27 Anion Gap 5 L BUN 16.0 Creatinine 1.4 H Est GFR (CKD-EPI)AfAm 66.48 Est GFR (CKD-EPI)NonAf 57.36 POC Glucometer 149 Random Glucose 105 Hemoglobin A1c % Lactic Acid Calcium 8.4 L Total Bilirubin AST ALT Alkaline Phosphatase Troponin I Total Protein Albumin Triglycerides Cholesterol Total LDL Cholesterol HDL Cholesterol TSH Free T4 Urine Color Urine Appearance Urine pH Ur Specific [place] Urine Protein Urine Glucose (UA) Urine Ketones Urine Blood Urine Nitrite Urine Bilirubin Urine Urobilinogen Ur Leukocyte Esterase COVID-19 (NONA) 07/09/20 07/09/20 08:20 08:20 WBC RBC Hgb Hct MCV MCH MCHC RDW Plt Count MPV Absolute Neuts (auto) Neutrophils % Lymphocytes % Monocytes % Eosinophils % Basophils % Nucleated RBC % PT with INR INR PTT (Actin FS) VBG pH POC VBG pCO2 POC VBG pO2 VBG HCO3 VBG O2 Sat (Viviane) VBG Base Excess Sodium 138 Potassium 3.8 Chloride 108 H Carbon Dioxide 23 Anion Gap 7 L BUN 14.0 Creatinine 1.2 Est GFR (CKD-EPI)AfAm 80.10 Est GFR (CKD-EPI)NonAf 69.11 POC Glucometer Random Glucose 160 H Hemoglobin A1c % 10.9 H Lactic Acid Calcium 8.2 L Total Bilirubin 0.3 AST 16 ALT 16 Alkaline Phosphatase 98 Troponin I Total Protein 7.3 Albumin 2.6 L Triglycerides 67 Cholesterol 111 Total LDL Cholesterol 53 HDL Cholesterol 49 TSH Free T4 Urine Color Urine Appearance Urine pH Ur Specific [place] Urine Protein Urine Glucose (UA) Urine Ketones Urine Blood Urine Nitrite Urine Bilirubin Urine Urobilinogen Ur Leukocyte Esterase COVID-19 (NONA) Active Medications Generic Name Dose Route Start Last Admin Trade Name Freq PRN Reason Stop Dose Admin Apixaban 5 mg 07/08/20 22:00 07/08/20 23:17 Eliquis - PO 5 mg BID ADITYA Administration Bictegravir/Emtricitabine/Tenofovir 1 each 07/09/20 10:00 Biktarvy 50-200-25 Mg Tablet PO DAILY ADITYA Sodium Chloride 1,000 mls @ 75 mls/hr 07/08/20 22:00 07/08/20 23:17 Normal Saline - IV 75 mls/hr ASDIR ADITYA Administration Vancomycin HCl 1,000 mg in 250 mls @ 200 mls/hr 07/09/20 15:00 Vancomycin (Pre-Docked) IVPB Q24H ADITYA Protocol Piperacillin Sod/Tazobactam 50 mls @ 100 mls/hr 07/09/20 12:00 Sod 3.375 gm/ Dextrose IVPB Q8H-IV ADITYA Protocol Insulin Aspart 1 vial 07/08/20 22:00 07/09/20 10:01 Novolog Vial Sliding Scale - SQ Not Given ACHS ADITYA Protocol Insulin Detemir 10 units 07/08/20 22:00 07/09/20 10:00 Levemir Vial SQ Not Given BID@0700,2200 [facility] ASSESSMENT/PLAN: Patient is a 50 year old male with history of HIV (on CISNEROS), polysubstance abuse (crack, cocaine, alcohol, marijuana), hypertension, hyperlipidemia, Afib (on Eliquis), numerous absceses s/p incision and drainage presents with complaint of sacral wound. Sepsis secondary to sacral wound -History of numerous prior wounds, with similar presentation -Follow CT pelvis reading -ID recommendations (Dr. Thompson) appreciated. Continue Vancomycin, Zosyn -Follow blood cultures, urine cultures, wound cultures -General surgery consulted for possible incision and drainage. -Lactic acid normalized PHONG on CKD -Resolved. In setting of sepsis -Continue IV fluid hydration with normal saline at 75mL/ hour -Follow BMP Diabetes mellitus -Hgb A1c 10.9. -Levemir 10 units BID -Insulin sliding scale ACHS History of hypertension -Losartan was held in setting of PHONG. History of HIV -Continue Biktarvy History of Afib -Continue Eliquis. Holding beta jenna in setting of cocaine use. FEN -IV normal saline at 75mL. hour -Follow BMP -NPO in anticipation of possible surgical intervention Prophylaxis -SCDs bilateral lower extremities Disposition -Continue care in medical- surgical floor. Visit type - Emergency Visit Emergency Visit: Yes ED Registration Date: 07/08/20 Care time: The patient presented to the Emergency Department on the above date and was hospitalized for further evaluation of their emergent condition. - New Patient This patient is new to me today: Yes Date on this admission: 07/09/20 - Critical Care Critical Care patient: No - Discharge Referral Referred to [facility] Med P.C.: No ATTENDING PHYSICIAN STATEMENT I saw and evaluated the patient. I reviewed the resident's note and discussed the case with the resident. I agree with the resident's findings and plan as documented. SUBJECTIVE: OBJECTIVE: ASSESSMENT AND PLAN:
[2020-07-09] MEDS: BICTEGRAV/EMTRICIT/TENOFOV (BIKTARVY) 50-200-25 MG TABLET PO SCH (13:08)
[2020-07-09] MEDS: APIXABAN 5 MG TABLET PO SCH (13:08)
--- NOTE | 2020-07-09 13:30 | EKG ---
Test Reason : Blood Pressure : / mmHG Vent. Rate : 044 BPM Atrial Rate : 249 BPM P-R Int : 000 ms QRS Dur : 112 ms QT Int : 478 ms P-R-T Axes : 239 074 066 degrees QTc Int : 408 ms ATRIAL FLUTTER WITH VARIABLE A-V BLOCK SEPTAL INFARCT , AGE UNDETERMINED Confirmed by MD CHAKA, HARSHAD ([id number]) on 07/09/2020 1:30:31 PM Referred By: Confirmed By:HARSHAD NULL MD
--- NOTE | 2020-07-09 13:44 | CONSULT ---
<Aimee Tee - Last Filed: 07/10/20 14:15> - Consultation REQUESTING PROVIDER: CONSULT REQUEST: We have been asked to surgically evaluate this patient for several sacral decubitus ulcers and perianal fistula. Hospitalist:Alberto Paul MD HISTORY OF PRESENT ILLNESS: Patient seen and examined with Dr Marsh in the ED. This is a 50 y/o male with a PMH of well controlled HIV, poorly controlled DM, and CHF presenting to the ED from [facility] due to hypotension/bradycardia, worsening sacral ulcers, and hyperglycemia. He presented to the [facility] today for a regular appointment when they discovered the abnormal vitals, however the patient was conversational and able to ambulate with no problem. He also reports that he had a witnessed syncopal episode last Tuesday. He has had 5 syncopal episodes over the past 2 years which have always been in conjunction with worsening of his chronic sacral ulcers and sepsis. His last episode was one year ago and he was admitted to [facility]. He reports that he is chronically hypotensive and bradycardic. His blood pressure normally runs around 110/70's. Over the past 5 days, he has felt weak, dizzy, and had blurry vision. He denies chest pain, SOB, sore throat, abdominal pain, N/V, or diarrhea. PMH: HIV on Biktarvy, DM, CHF Social Hx: Admits to 5-6 cigarettes daily, occasional etoh, marijuana Meds: See nurse note. Allergies: NKDA Home Medications Medication Instructions Recorded Carvedilol [Coreg -] 6.25 mg PO BID 09/07/18 Diltiazem Cd [Cardizem Cd -] 120 mg PO DAILY 09/07/18 Ergocalciferol (Vitamin D2) 50,000 unit PO WEEKLY 09/07/18 [Vitamin D2] Furosemide [Lasix -] 40 mg PO DAILY 09/07/18 Losartan Potassium [Cozaar -] 25 mg PO DAILY 09/07/18 Metformin HCl [Glucophage] 500 mg PO ACBK 09/07/18 Apixaban [Eliquis -] 1 tab PO DAILY 03/20/19 Bictegrav/Emtricit/Tenofov Ala 1 each PO DAILY #30 tablet 06/02/20 [Biktarvy 50-200-25 mg Tablet] Allergies Allergy/AdvReac Type Severity Reaction Status Date / Time No Known Drug Allergies Allergy Verified 07/08/20 13:50 shellfish derived Allergy Swelling Verified 07/08/20 13:50 NKDA Allergy Uncoded 03/14/20 14:34 REVIEW OF SYSTEMS: GENERAL/CONSTITUTIONAL: Yes chills. Yes weakness HEAD, EYES, EARS, NOSE AND THROAT: Yes blurry vision No ear pain or discharge. No sore throat. CARDIOVASCULAR: No chest pain or shortness of breath. RESPIRATORY: Yes chronic cough, No wheezing, or hemoptysis. GASTROINTESTINAL: No nausea, vomiting, diarrhea or constipation. GENITOURINARY: No dysuria, frequency, or change in urination. MUSCULOSKELETAL: No joint or muscle swelling or pain. No neck or back pain. SKIN: Yes chronic back and sacral pustules and small ulcers NEUROLOGIC: No headache, vertigo, loss of consciousness, or change in strength/sensation. ENDOCRINE: No increased thirst. No abnormal weight change. HEMATOLOGIC/LYMPHATIC: No anemia, easy bleeding, or history of blood clots. PHYSICAL EXAM: GENERAL: Awake, alert, and fully oriented, in no acute distress. HEAD: No signs of trauma EYES: PERRLA LUNGS: Unlabored resp on RA. No auditory wheezes. No accessory muscle use. HEART: irregular rhythm, bradycardic. ABDOMEN: Soft, nontender, EXTREMITIES: Moving all extremities without limitation, no peripheral edema. No clubbing or cyanosis. NEUROLOGICAL: Cranial nerves II through XII grossly intact. Normal speech, normal gait SKIN: Multiple small sacral stage 2 decubitus ulcers -likely secondary to hydroadenitis vs foliculitis. chronic skin changes and scarring seen throughout entire back and buttocks, small sinus opening on right buttock with purulant d/c. Vital Signs Temperature 98.8 F 07/09/20 06:30 Pulse Rate 80 07/09/20 13:06 Respiratory Rate 18 07/09/20 13:06 Blood Pressure 136/75 07/09/20 13:06 O2 Sat by Pulse Oximetry (%) 100 07/09/20 13:06 Lab Results WBC 11.3 K/mm3 (4.0-10.0) H 07/09/20 08:20 RBC 3.79 M/mm3 (4.00-5.60) L 07/09/20 08:20 Hgb 11.9 GM/dL (11.7-16.9) 07/09/20 08:20 Hct 35.7 % (35.4-49) 07/09/20 08:20 MCV 94.3 fl (80-96) 07/09/20 08:20 MCHC 33.3 g/dl (32.0-35.9) 07/09/20 08:20 RDW 13.6 % (11.9-15.9) 07/09/20 08:20 Plt Count 219 K/MM3 (134-434) 07/09/20 08:20 INR 1.43 (0.83-1.09) H 07/08/20 13:45 Sodium 138 mmol/L (136-145) 07/09/20 08:20 Potassium 3.8 mmol/L (3.5-5.1) 07/09/20 08:20 Chloride 108 mmol/L (98-107) H 07/09/20 08:20 Carbon Dioxide 23 mmol/L (21-32) 07/09/20 08:20 Anion Gap 7 MMOL/L (8-16) L 07/09/20 08:20 BUN 14.0 mg/dL (7-18) 07/09/20 08:20 Creatinine 1.2 mg/dL (0.55-1.3) 07/09/20 08:20 Random Glucose 160 mg/dL (74-106) H 07/09/20 08:20 Calcium 8.2 mg/dL (8.5-10.1) L 07/09/20 08:[address] with contrast: Small right perianal fluid collection suspicious for abscess Large area of soft tissue density within the subcutaneous tissue of the buttocks suspicious for phlegmon/developing abscess Problem List - Problems (1) Hidradenitis suppurativa Assessment/Plan: 50 yo with chronic Hydradenitis suppurativa, with draining fistula tract draining at right buttocks. No indication for surgical intervention as tract is draining. -IV abx per ID -offload pressure sensitive areas - Allevyn/optifoam to sacrum - change dressings daily - pain control -tight glycemic control - surgery to follow Code(s): L73.2 - HIDRADENITIS SUPPURATIVA <Jey Marsh - Last Filed: 07/22/20 08:12> - Consultation Attending Surgeon: I personally saw and examined the patient. My examination reveals a patient with a soft tissue infection. I discussed the case with the surgical PA and agree with their findings and plan of care with any exceptions as noted. ~ Jey Marsh MD, FACS
[2020-07-09] MEDS ORDERED: PIPERACILLIN/TAZOB 3.375 GM 3.375 GM/50 ML BAG IVPB ONE (13:51)
[2020-07-09] MEDS: PIPERACILLIN/TAZOB 3.375 GM 3.375 GM in DEXTROSE 5%-WATER - 50 ML IVPB SCH ×2 (14:01→19:13)
[2020-07-09] MEDS ORDERED: VANCOMYCIN 1 GRAM (PRE-DOCKED) 1,000 MG/250 ML BAG IVPB SCH (15:00)
--- NOTE | 2020-07-09 16:40 | PN ---
Progress Note (short form) - Note Progress Note: feels better reports 30 yr history of "pilonidal cysts" frequent purulent drainage awaiting surgical opinion Vital Signs Period Temp Pulse Resp BP Sys/Rios Pulse Ox Last 24 Hr 98.8 F-98.8 F 65-93 16-20 115-138/75-107 98-100 cor-rrr lungs clear +small abscess on the back +purulent drainage from the sacrum- CBC, BMP 07/09/20 08:20 07/09/20 08:[address] with small perianal collection c/w abscess, subcutaneous abscess/phlegmon imp/reccd sepsis skin abscesses doubt pneumonia well controlled HIV- continue biktarvy f/u labs repeat cultures routine, afb and fungal continue vanco/zosyn for now d/w hospitalist
[2020-07-09] MEDS ORDERED: PIPERACILLIN/TAZOBACTAM 3.375 GM VIAL IVPB ONE (17:36)
[2020-07-09] MEDS ORDERED: DEXTROSE 5%-WATER - 50 ML IVPB ONE (17:36)
[2020-07-09 21:17] VITALS: BMI 22.9
[2020-07-10] MEDS ORDERED: PIPERACILLIN/TAZOBACTAM 3.375 GM VIAL IVPB ONE ×2 (01:56→08:57)
[2020-07-10] MEDS ORDERED: DEXTROSE 5%-WATER - 50 ML IVPB ONE ×2 (01:57→08:57)
[2020-07-10] MEDS: PIPERACILLIN/TAZOB 3.375 GM 3.375 GM in DEXTROSE 5%-WATER - 50 ML IVPB SCH ×3 (02:22→09:47)
[2020-07-10] MEDS ORDERED: guaiFENesin 200 MG/10 ML 10 ML UNIT-DOSE CUPS PO ONE (03:15)
[2020-07-10] MEDS: INSULIN SLIDING SCALE (NOVOLOG) 1 VIAL SQ SCH (06:32)
[2020-07-10] MEDS: INSULIN (LEVEMIR) 100 UNITS/ML UNITS SQ SCH (06:32)
[2020-07-10 08:08] LABS: HEMATOCRIT 35.2 % (35.4-49); HEMOGLOBIN 11.9 GM/dL (11.7-16.9); MCH 32.4 pg (25.7-33.7); MCHC 33.8 g/dl (32.0-35.9); MEAN CELL VOLUME 95.7 fl (80-96); MEAN PLT VOLUME 9.3 fl (7.5-11.1); PLATELET COUNT 189 K/MM3 (134-434); RBC 3.67 M/mm3 (4.00-5.60); RDW 13.8 % (11.9-15.9); WHITE BLOOD COUNT 11.3 K/mm3 (4.0-10.0)
[2020-07-10 08:40] LABS: ALBUMIN 2.5 g/dl (3.4-5.0); BILIRUBIN,TOTAL 0.4 mg/dL (0.2-1); BLOOD UREA NITROGEN 14.7 mg/dL (7-18); CALCIUM 8.2 mg/dL (8.5-10.1); CREATININE 1.2 mg/dL (0.55-1.3); POTASSIUM 3.8 mmol/L (3.5-5.1); TOT PROT 7.4 g/dl (6.4-8.2)
[2020-07-10] MEDS ORDERED: PT OWN MED DRAWER 7, Y5N ONE (09:24)
[2020-07-10] MEDS: BICTEGRAV/EMTRICIT/TENOFOV (BIKTARVY) 50-200-25 MG TABLET PO SCH ×2 (09:41→09:47)
[2020-07-10 09:42] VITALS: BP 164/97; PULSE 90; TEMP 99
--- NOTE | 2020-07-10 11:33 | DS ---
Physical Exam: SUBJECTIVE: Patient seen and examined at bedside. OBJECTIVE: Vital Signs Period Temp Pulse Resp BP Sys/Rios Pulse Ox Last 24 Hr 98.7 F-99.8 F 80-97 18-21 136-164/75-105 96-100 PHYSICAL EXAM GENERAL: The patient is awake, alert, and fully oriented, in no acute distress. HEAD: Normocephalic, atraumatic. EYES: PERRL, extraocular movements intact, sclera anicteric, conjunctiva clear. ENT: Oropharynx clear, without erythema or exudates. Moist mucous membranes. NECK: Trachea midline, full range of motion. Supple without lymphadenopathy. LUNGS: Breath sounds equal, clear to auscultation bilaterally. No wheezes, no crackles. No accessory muscle use. HEART: Regular rate and rhythm. S1, S2 without murmur, rub or gallop. ABDOMEN: Soft, nondistended, nontender to light and deep palpation x4 quadrants. No rebound tenderness, no guarding. Normoactive bowel sounds x4 quadrants. No hepatosplenomegaly, no masses appreciated. EXTREMITIES: 2+ radial, dorsalis pedis pulses bilaterally. Warm, well-perfused. No lower extremity edema bilaterally. NEUROLOGICAL: Cranial nerves II through XII grossly intact. Normal speech. No gross focal deficits. PSYCH: Normal mood, normal affect upon my encounter. SKIN: Numerous circular lesions, some with purulent draiange along backside. Area of induration approx 10cm x 6cm. LABS Laboratory Results - last 24 hr 07/09/20 07/09/20 07/09/20 13:26 16:56 22:25 WBC RBC Hgb Hct MCV MCH MCHC RDW Plt Count MPV Sodium Potassium Chloride Carbon Dioxide Anion Gap BUN Creatinine Est GFR (CKD-EPI)AfAm Est GFR (CKD-EPI)NonAf POC Glucometer 116 215 224 Random Glucose Calcium Total Bilirubin AST ALT Alkaline Phosphatase Total Protein Albumin 07/10/20 07/10/20 07/10/20 06:30 07:35 07:35 WBC 11.3 H RBC 3.67 L Hgb 11.9 Hct 35.2 L MCV 95.7 MCH 32.4 MCHC 33.8 RDW 13.8 Plt Count 189 MPV 9.3 Sodium 139 Potassium 3.8 Chloride 109 H Carbon Dioxide 24 Anion Gap 5 L BUN 14.7 Creatinine 1.2 Est GFR (CKD-EPI)AfAm 80.10 Est GFR (CKD-EPI)NonAf 69.11 POC Glucometer 85 Random Glucose 142 H Calcium 8.2 L Total Bilirubin 0.4 AST 18 ALT 14 Alkaline Phosphatase 82 Total Protein 7.4 Albumin 2.5 L HOSPITAL COURSE: Date of Admission:07/08/20 Date of Discharge: 07/10/20 Patient is a 50 year old male with history of HIV (on CISNEROS), polysubstance abuse (crack, cocaine, alcohol, marijuana), hypertension, hyperlipidemia, Afib (on Eliquis), numerous absceses s/p incision and drainage presents with complaint of sacral wound. CT pelvis revealed 8.9 x 1.9 x 12.7cm area suspicious for abscess within subc utaneous fat of buttocks. Further, perianal fluid collection 1.8 x 1.1 x 1.6cm noted. Patient was evaluated by infectious disease physician and initiated on on IV vanocmycin, zosyn. Noted PHONG upon admission, which was likely pre-renal and initiated on gentle hydration with IV fluids. Upon morning rounds informed by nursing staff that patent had become agitated and patient had left the hospital against medical advice prior to evaluation. Minutes to complete discharge: 36 Discharge Summary Problems reviewed: Yes Reason For Visit: ATRIAL FLUTTER,HUMAN IMMUNODEFICIENCY VIRUS(HIV) Current Active Problems Abscess (Acute) Diabetes mellitus (Chronic) HIV (human immunodeficiency virus infection) (Chronic) History of CHF (congestive heart failure) (Chronic) History of DC (myocardial infarction) (Chronic) History of atrial fibrillation (Chronic) Condition: Fair - Instructions Disposition: AGAINST MEDICAL ADVICE - Home Medications Comprehensive Discharge Medication List: Ambulatory Orders Carvedilol [Coreg -] 6.25 mg PO BID 09/07/18 Diltiazem Cd [Cardizem Cd -] 120 mg PO DAILY 09/07/18 Ergocalciferol (Vitamin D2) [Vitamin D2] 50,000 unit PO WEEKLY 09/07/18 Furosemide [Lasix -] 40 mg PO DAILY 09/07/18 Losartan Potassium [Cozaar -] 25 mg PO DAILY 09/07/18 Metformin HCl [Glucophage] 500 mg PO ACBK 09/07/18 Apixaban [Eliquis -] 1 tab PO DAILY 03/20/19 Bictegrav/Emtricit/Tenofov Ala [Biktarvy 50-200-25 mg Tablet] 1 each PO DAILY #30 tablet 06/02/20 This patient is new to me today: No Emergency Visit: Yes ED Registration Date: 07/08/20 Care time: The patient presented to the Emergency Department on the above date and was hospitalized for further evaluation of their emergent condition. Critical Care patient: No - Discharge Referral Referred to [facility] Med P.C.: No ATTENDING PHYSICIAN STATEMENT I saw and evaluated the patient. I reviewed the resident's note and discussed the case with the resident. I agree with the resident's findings and plan as documented. SUBJECTIVE: OBJECTIVE: ASSESSMENT AND PLAN:
== END 2020-07-10 09:57 | disposition left against medical advice (07) | DRG 720 ==
LOC: JER 12:46 → JERBED 13:47 → J5S 07-09 15:03
PROVIDERS: ADMIT Hospitalist; ATTEND Internal Medicine
DX: A41.89 Other specified sepsis (principal); Z21 Asymptomatic human immunodeficiency virus [HIV] infection status; L02.31 Cutaneous abscess of buttock; L98.8 Other specified disorders of the skin and subcutaneous tissue; N17.9 Acute kidney failure, unspecified; E11.65 Type 2 diabetes mellitus with hyperglycemia; I48.91 Unspecified atrial fibrillation; F10.10 Alcohol abuse, uncomplicated; F12.10 Cannabis abuse, uncomplicated; F17.210 Nicotine dependence, cigarettes, uncomplicated; E78.5 Hyperlipidemia, unspecified; I48.92 Unspecified atrial flutter; I13.0 Hypertensive heart and chronic kidney disease with heart failure and stage 1 through stage 4 chronic kidney disease, or unspecified chronic kidney disease; E11.22 Type 2 diabetes mellitus with diabetic chronic kidney disease; N18.2 Chronic kidney disease, stage 2 (mild); I50.9 Heart failure, unspecified; L73.2 Hidradenitis suppurativa; K61.0 Anal abscess; I25.2 Old myocardial infarction
CPT/HCPCS: 36415; 71045-TC-FY; 72193-TC; 80048; 80053; 80061; 81003; 82803; 82962; 83036; 83605; 83721; 84439; 84443; 84484; 85025; 85027; 85610; 85730; 87040; 87070; 87076; 87086; 87102; 87116; 87205; 87206; 87210; 93005; 93010; 99285-25; Q9967; U0003

== ENCOUNTER 2021-03-09 04:41 | Day surgery (SDC) | payer OTHER ==
[2021-03-04 13:42] VITALS: BMI 24.1
[2021-03-09 11:36] LABS: HEMATOCRIT 38.6 % (35.4-49); HEMOGLOBIN 12.8 GM/dL (11.7-16.9); MCHC 33.1 g/dl (32.0-35.9); MEAN CELL VOLUME 90.8 fl (80-96); MEAN PLT VOLUME 7.8 fl (7.5-11.1); PLATELET COUNT 363 K/MM3 (134-434); RBC 4.25 M/mm3 (4.00-5.60); RDW 16.2 % (11.9-15.9); WHITE BLOOD COUNT 13.8 K/mm3 (4.0-10.0)
[2021-03-09 11:42] LABS: INR 1.83 (0.83-1.09); PROTHROMBIN TIME (PATIENT) 22.1 SEC (9.7-13.0)
[2021-03-09 11:44] LABS: ACTIVATED PTT 38.3 SECONDS (25.2-36.5)
[2021-03-09 11:56] LABS: CALCIUM 9.2 mg/dL (8.5-10.1)
[2021-03-09 11:57] LABS: ALBUMIN 2.8 g/dl (3.4-5.0); BLOOD UREA NITROGEN 17.1 mg/dL (7-18)
[2021-03-09 12:00] LABS: CREATININE 1.5 mg/dL (0.55-1.3)
[2021-03-09 12:02] LABS: BILIRUBIN,TOTAL 0.5 mg/dL (0.2-1); TOT PROT 9.1 g/dl (6.4-8.2)
[2021-03-09] MEDS ORDERED: LIDOCAINE VISCOUS 2% ORAL/TOP 20 ML UNIT-DOSE CUP ONE (12:31)
[2021-03-09 13:32] VITALS: TEMP 97.1
[2021-03-09 15:35] VITALS: BP 121/79; PULSE 80
== END 2021-03-09 15:00 | disposition home or self-care (01) ==
LOC: JASU-ENDO 04:41
PROVIDERS: ATTEND Internal Medicine Cardiovascular Disease
PROC: 5A2204Z Restoration of Cardiac Rhythm, Single (ICD-10-PCS; 2021-03-09)
PROC: B246ZZ4 Ultrasonography of Right and Left Heart, Transesophageal (ICD-10-PCS; principal; 2021-03-09 13:15)
DX: I48.92 Unspecified atrial flutter (principal)
CPT/HCPCS: 36415; 80053; 82962; 85027; 85610; 85730; 93005; 93010; 93312; 93325

== ENCOUNTER 2022-08-31 18:53 | Inpatient (IN) | payer OTHER ==
[2022-08-31 20:45] VITALS: BMI 22.3
[2022-08-31] MEDS ORDERED: DICYCLOMINE HCL 10 MG CAPSULE PO PRN (22:14)
[2022-08-31] MEDS ORDERED: LOPERAMIDE HCL 2 MG CAPSULE PO PRN (22:14)
[2022-08-31] MEDS ORDERED: MAG HYDROX/AL HYDROX/SIMETH 30 ML UNIT-DOSE CUP PO PRN (22:14)
[2022-08-31] MEDS ORDERED: MAGNESIUM HYDROX 2400MG/30ML ORAL SUSPENSION 30 ML CUP PO PRN (22:14)
[2022-08-31] MEDS ORDERED: BENZOCAINE/MENTHOL (CHLORASEPTIC ) LOZENGE MM PRN (22:14)
[2022-08-31] MEDS ORDERED: MAGNESIUM CITRATE 300 ML BOTTLE PO PRN (22:14)
[2022-08-31] MEDS ORDERED: ONDANSETRON *ODT* 4 MG TABLET SL PRN (22:14)
[2022-08-31] MEDS ORDERED: guaiFENesin 200 MG/10 ML 10 ML UNIT-DOSE CUPS PO PRN (22:14)
[2022-08-31] MEDS ORDERED: NICOTINE 10 MG CARTRIDGE (INHALER) IH PRN (22:14)
[2022-08-31] MEDS ORDERED: P-EPHED 60MG/TRIPROLIDI 2.5MG TABLET PO PRN (22:14)
[2022-08-31] MEDS ORDERED: ACETAMINOPHEN 325 MG TABLET (FP) PO PRN ×2 (22:14)
[2022-09-01] MEDS: metFORMIN HCL 500 MG TABLET (FP) PO SCH ×2 (06:41→17:28)
[2022-09-01] MEDS ORDERED: chlordiazePOXIDE HCL 25 MG CAPSULE PO PRN (10:12)
[2022-09-01] MEDS: PRENATAL VITAMINS W/ FOLIC ACID TABLET (FP) PO SCH (10:39)
[2022-09-01] MEDS: METHOCARBAMOL 500 MG TABLET PO PRN (10:39)
[2022-09-01] MEDS: hydrOXYzine PAMOATE 25 MG CAPSULE (FP) PO PRN (10:40)
[2022-09-01] MEDS: BICTEGRAV/EMTRICIT/TENOFOV (BIKTARVY) 50-200-25 MG TABLET PO SCH (10:41)
[2022-09-01] MEDS: chlordiazePOXIDE HCL 25 MG CAPSULE PO SCH ×3 (11:15→22:30)
[2022-09-01 13:23] LABS: HEMATOCRIT 38.6 % (35.4-49); HEMOGLOBIN 12.9 GM/dL (11.7-16.9); MCH 30.8 pg (25.7-33.7); MCHC 33.5 g/dl (32.0-35.9); MEAN CELL VOLUME 91.8 fl (80-96); MEAN PLT VOLUME 8.5 fl (7.5-11.1); PLATELET COUNT 275 10^3/uL (134-434); RDW 13.3 % (11.9-15.9); WHITE BLOOD COUNT 13.1 K/mm3 (4.0-10.0)
[2022-09-01 13:37] LABS: BLOOD UREA NITROGEN 14.7 mg/dL (7-18); CALCIUM 9.3 mg/dL (8.5-10.1)
[2022-09-01 13:38] LABS: ALBUMIN 2.9 g/dl (3.4-5.0)
[2022-09-01 13:42] LABS: BILIRUBIN,TOTAL 0.3 mg/dL (0.2-1); TOT PROT 8.5 g/dl (6.4-8.2)
[2022-09-01] MEDS ORDERED: BICTEGRAV/EMTRICIT/TENOFOV (BIKTARVY) 50-200-25 MG TABLET PO SCH (14:30)
[2022-09-01] MEDS: APIXABAN 5 MG TABLET PO SCH (22:30)
[2022-09-01] MEDS: THIAMINE HCL 100 MG TABLET (FP) PO SCH (22:30)
[2022-09-01] MEDS: MELATONIN 5 MG TABLETS PO PRN (22:31)
[2022-09-02] MEDS: chlordiazePOXIDE HCL 25 MG CAPSULE PO SCH ×4 (06:31→23:21)
[2022-09-02] MEDS: metFORMIN HCL 500 MG TABLET (FP) PO SCH ×2 (07:56→17:36)
[2022-09-02] MEDS: BICTEGRAV/EMTRICIT/TENOFOV (BIKTARVY) 50-200-25 MG TABLET PO SCH (07:57)
[2022-09-02] MEDS: PRENATAL VITAMINS W/ FOLIC ACID TABLET (FP) PO SCH (10:18)
[2022-09-02] MEDS: APIXABAN 5 MG TABLET PO SCH ×2 (10:19→23:21)
[2022-09-02] MEDS: METHOCARBAMOL 500 MG TABLET PO PRN (10:19)
[2022-09-02] MEDS: hydrOXYzine PAMOATE 25 MG CAPSULE (FP) PO PRN (10:19)
[2022-09-02] MEDS: THIAMINE HCL 100 MG TABLET (FP) PO SCH (23:21)
[2022-09-02] MEDS: MELATONIN 5 MG TABLETS PO PRN (23:21)
[2022-09-03] MEDS: chlordiazePOXIDE HCL 25 MG CAPSULE PO SCH ×4 (05:31→22:50)
[2022-09-03] MEDS: metFORMIN HCL 500 MG TABLET (FP) PO SCH ×2 (06:48→17:48)
[2022-09-03] MEDS: BICTEGRAV/EMTRICIT/TENOFOV (BIKTARVY) 50-200-25 MG TABLET PO SCH (07:00)
[2022-09-03] MEDS: PRENATAL VITAMINS W/ FOLIC ACID TABLET (FP) PO SCH (10:24)
[2022-09-03] MEDS: APIXABAN 5 MG TABLET PO SCH ×2 (10:24→22:48)
[2022-09-03 12:00] LABS: WHITE BLOOD COUNT 18.3 K/mm3 (4.0-10.0)
[2022-09-03 12:01] LABS: HEMATOCRIT 35.9 % (35.4-49); HEMOGLOBIN 11.8 GM/dL (11.7-16.9); MCH 30.1 pg (25.7-33.7); MCHC 32.7 g/dl (32.0-35.9); MEAN CELL VOLUME 92.1 fl (80-96); MEAN PLT VOLUME 8.9 fl (7.5-11.1); PLATELET COUNT 305 10^3/uL (134-434); RDW 13.7 % (11.9-15.9)
[2022-09-03 12:30] LABS: ANISOCYTOSIS 0; HELMET CELLS 0; HOWELL-JOLLY BODIES 0; MACROCYTOSIS 0; OVALOCYTE 0; ROULEAU 0; SICKELED CELLS 0; TARGET CELLS 0; TEAR DROP CELLS 0; TOXIC GRANULATION 0
[2022-09-03] MEDS: MELATONIN 5 MG TABLETS PO PRN (22:47)
[2022-09-03] MEDS: hydrOXYzine PAMOATE 25 MG CAPSULE (FP) PO PRN (22:47)
[2022-09-03] MEDS: METHOCARBAMOL 500 MG TABLET PO PRN (22:47)
[2022-09-03] MEDS: THIAMINE HCL 100 MG TABLET (FP) PO SCH (22:48)
[2022-09-04] MEDS ORDERED: chlordiazePOXIDE HCL 10 MG CAPSULE PO PRN
[2022-09-04] MEDS: chlordiazePOXIDE HCL 10 MG CAPSULE PO SCH ×4 (05:32→22:06)
[2022-09-04] MEDS: metFORMIN HCL 500 MG TABLET (FP) PO SCH ×2 (06:35→18:07)
[2022-09-04] MEDS: BICTEGRAV/EMTRICIT/TENOFOV (BIKTARVY) 50-200-25 MG TABLET PO SCH (09:00)
[2022-09-04] MEDS: APIXABAN 5 MG TABLET PO SCH ×2 (10:45→23:00)
[2022-09-04] MEDS: PRENATAL VITAMINS W/ FOLIC ACID TABLET (FP) PO SCH (10:45)
[2022-09-04 11:27] LABS: BASO % 0.5 % (0-2.0); HEMATOCRIT 35.3 % (35.4-49); HEMOGLOBIN 11.4 GM/dL (11.7-16.9); LYMPH % 9.4 % (8-40); MCH 29.7 pg (25.7-33.7); MCHC 32.4 g/dl (32.0-35.9); MEAN CELL VOLUME 91.6 fl (80-96); MEAN PLT VOLUME 8.7 fl (7.5-11.1); MONO % 6.1 % (3.8-10.2); PLATELET COUNT 265 10^3/uL (134-434); RBC 3.85 M/mm3 (4.00-5.60); RDW 13.6 % (11.9-15.9); WHITE BLOOD COUNT 18.2 K/mm3 (4.0-10.0)
[2022-09-04] MEDS: THIAMINE HCL 100 MG TABLET (FP) PO SCH (22:06)
[2022-09-04] MEDS: MELATONIN 5 MG TABLETS PO PRN (22:06)
[2022-09-05] MEDS: metFORMIN HCL 500 MG TABLET (FP) PO SCH ×2 (06:00→18:00)
[2022-09-05] MEDS: chlordiazePOXIDE HCL 10 MG CAPSULE PO SCH ×2 (06:00→17:30)
[2022-09-05] MEDS: BICTEGRAV/EMTRICIT/TENOFOV (BIKTARVY) 50-200-25 MG TABLET PO SCH (10:34)
[2022-09-05] MEDS: PRENATAL VITAMINS W/ FOLIC ACID TABLET (FP) PO SCH (10:35)
[2022-09-05] MEDS: hydrOXYzine PAMOATE 25 MG CAPSULE (FP) PO PRN (10:35)
[2022-09-05] MEDS: METHOCARBAMOL 500 MG TABLET PO PRN (10:35)
[2022-09-05] MEDS: APIXABAN 5 MG TABLET PO SCH ×2 (10:36→22:46)
[2022-09-05] MEDS: CLINDAMYCIN HCL 150 MG CAPSULE (FP) PO SCH ×2 (14:16→22:46)
[2022-09-05 17:31] VITALS: RESP 16
[2022-09-05] MEDS: MELATONIN 5 MG TABLETS PO PRN (22:45)
[2022-09-05] MEDS: THIAMINE HCL 100 MG TABLET (FP) PO SCH (22:46)
[2022-09-06] MEDS ORDERED: chlordiazePOXIDE HCL 10 MG CAPSULE PO ONE (05:00)
[2022-09-06] MEDS: metFORMIN HCL 500 MG TABLET (FP) PO SCH (06:16)
[2022-09-06] MEDS: CLINDAMYCIN HCL 150 MG CAPSULE (FP) PO SCH (06:16)
[2022-09-06 07:49] VITALS: BP 117/73; PULSE 74; TEMP 96.9
== END 2022-09-06 09:02 | disposition home or self-care (01) | DRG 774 ==
LOC: YASAS 18:53 → Y6N 22:21
PROVIDERS: ADMIT Allergy & Immunology; ATTEND Surgery
PROC: HZ2ZZZZ Detoxification Services for Substance Abuse Treatment (ICD-10-PCS; principal; 2022-08-31)
DX: F10.230 Alcohol dependence with withdrawal, uncomplicated (principal); F14.20 Cocaine dependence, uncomplicated; F12.20 Cannabis dependence, uncomplicated; F17.210 Nicotine dependence, cigarettes, uncomplicated; Z21 Asymptomatic human immunodeficiency virus [HIV] infection status; D72.829 Elevated white blood cell count, unspecified; I48.20 Chronic atrial fibrillation, unspecified; I11.0 Hypertensive heart disease with heart failure; I50.9 Heart failure, unspecified; L98.429 Non-pressure chronic ulcer of back with unspecified severity; E11.9 Type 2 diabetes mellitus without complications; Z79.84 Long term (current) use of oral hypoglycemic drugs; I25.2 Old myocardial infarction; Z79.01 Long term (current) use of anticoagulants; Z87.2 Personal history of diseases of the skin and subcutaneous tissue
CPT/HCPCS: 36415; 80053; 82962; 85025; 85027; 86780; C9803-CS; U0003; U0005